=== PATIENT | male | born 1940 | race Hispanic/Latino ===

== ENCOUNTER → 2017-12-23 | Outpatient (CLI) | payer OTHER | END | disposition home or self-care (01) | LOC: RAH 12:41 | PROVIDERS: ATTEND Family Medicine | DX: Z13.6 Encounter for screening for cardiovascular disorders (principal) | CPT/HCPCS: 75571 ==

== ENCOUNTER → 2018-01-16 | Outpatient (CLI) | payer MEDICARE ==
[~2018-01-16] MED LIST: REGADENOSON 0.4 MG/5 ML PF SYG IVP ONE; REGADENOSON 0.4 MG/5 ML PF SYG IVP SCH
== END | disposition home or self-care (01) ==
LOC: SHCH 09:49
PROVIDERS: ATTEND Internal Medicine Cardiovascular Disease
DX: I25.10 Atherosclerotic heart disease of native coronary artery without angina pectoris (principal); I10 Essential (primary) hypertension; R93.1 Abnormal findings on diagnostic imaging of heart and coronary circulation
CPT/HCPCS: 78452; 93017; 96374; A9505; J2785

== ENCOUNTER 2020-04-14 15:50 | Inpatient (IN) | payer MEDICARE ==
[~2020-04-14] VITALS: Ht 167.6 cm; Wt 74.7 kg
[2020-04-14] MEDS ORDERED: ONDANSETRON 4MG INJ ONE (16:08)
[2020-04-14] MEDS ORDERED: 0.9%NACL 1000ML 1,000 ML IV ONE ×2 (16:10→16:53)
[2020-04-14 16:26] LABS: BASOPHILS % (AUTO) 0.3 % (0.0-5.0); HEMATOCRIT 31.7 % (42-54); LYMPHOCYTES % (AUTO) 3.1 % (21.0-51.0); MEAN CORPUSCULAR HEMOGLOBIN 30.7 pg (27.0-33.0); MEAN CORPUSCULAR HGB CONC 32.5 g/dL (32.0-36.0); MEAN CORPUSCULAR VOLUME 94.6 fL (79-99); MONOCYTES % (AUTO) 5.6 % (3.0-13.0); NEUTROPHILS % (AUTO) 85.7 % (40.0-77.0); PLATELET COUNT (AUTO) 80 K/uL (130-400); RED BLOOD CELL COUNT(AUTO) 3.35 MIL/uL (4.50-6.20); RED CELL DISTRIBUTION WIDTH 14.5 % (11.0-15.5); WHITE BLOOD COUNT (AUTO) 20.1 K/uL (4.8-10.8)
[2020-04-14 16:48] LABS: INR 1.15 (0.85-1.15); PROTHROMBIN TIME 12.4 SEC (9.6-11.6)
[2020-04-14 16:49] LABS: PARTIAL THROMBOPLASTIN TIME 29.6 SEC (26.3-35.5)
[2020-04-14 16:51] LABS: CREATININE 5.2 mg/dL (0.5-1.5); POTASSIUM 4.7 mmol/L (3.5-5.1)
[2020-04-14 16:52] LABS: B-TYPE NATRIURETIC PEPTIDE 759 pg/mL (0-100)
[2020-04-14] MEDS ORDERED: ZOSYN 3.375GM+NS 50ML 50 ML IV ONE (16:53)
[2020-04-14 17:14] LABS: ALBUMIN 3.4 g/dL (3.5-5.0); BILIRUBIN,TOTAL 0.6 mg/dL (0.2-1.0); TOTAL PROTEIN, SERUM 7.3 g/dL (6.0-8.3)
[2020-04-14] MEDS ORDERED: NOREPINEPHRIN 4MG/NS 250ML 250 ML IV ONE ×2 (17:43→23:03)
[2020-04-14] MEDS ORDERED: HEPARIN 25,000 UNITS/250ML D5W 250 ML IV SCH (20:00)
[2020-04-14] MEDS ORDERED: RENAL DOSE IV SCH (20:00)
[2020-04-14] MEDS ORDERED: VANCOMYCIN PROTOCOL PER PHARMACY IV SCH (20:00)
[2020-04-14] MEDS: ASPIRIN 325MG EC TAB PO SCH (20:00)
[2020-04-14] MEDS: ZOSYN 3.375GM+NS 50ML 50 ML IV SCH (20:00)
[2020-04-14] MEDS ORDERED: VANCOMYCIN 1G/250ML KIT 250 ML IV SCH (20:00)
[2020-04-14] MEDS ORDERED: NITROGLYCERIN 0.4 MG SL TAB SL PRN (20:15)
[2020-04-14] MEDS ORDERED: DIPHENHYDRAMINE HCL 25 MG CAPSULE PO PRN (20:15)
[2020-04-14] MEDS ORDERED: LACTULOSE 20 GM/30 ML UDCUP PO PRN (20:15)
[2020-04-14] MEDS ORDERED: GUAIFENESIN-DM 200/20 MG 10 ML PO PRN (20:15)
[2020-04-14] MEDS ORDERED: MAG/ALUM/SIMETH 30 ML UDCUP PO PRN (20:15)
[2020-04-14] MEDS ORDERED: DiphenhydrAMINE HCL 50 MG/ML VIAL IV PRN (20:15)
[2020-04-14] MEDS ORDERED: ACETAMINOPHEN 325 MG TAB PO PRN (20:15)
[2020-04-14] MEDS ORDERED: HEPARIN 5,000 UNIT VIAL ONE ×2 (20:41→20:54)
[2020-04-14] MEDS ORDERED: ASPIRIN 325 MG TABLET ONE (20:41)
[2020-04-14] MEDS ORDERED: FAMOTIDINE 20MG VIAL IV ONE (20:42)
[2020-04-14] MEDS ORDERED: HEPARIN 25,000 UNITS/250ML D5W 250 ML IV ONE (20:42)
[2020-04-14] MEDS ORDERED: VANCOMYCIN 1G/250ML KIT 250 ML IV ONE (20:42)
[2020-04-14 20:48] LABS: CREATININE 5.1 mg/dL (0.5-1.5); POTASSIUM 5.2 mmol/L (3.5-5.1)
[2020-04-14 21:11] LABS: ALBUMIN 3.1 g/dL (3.5-5.0); BILIRUBIN,TOTAL 0.6 mg/dL (0.2-1.0); TOTAL PROTEIN, SERUM 6.6 g/dL (6.0-8.3)
[2020-04-15 02:37] LABS: APPEARANCE,URINE CLOUDY (CLEAR); BILIRUBIN,URINE Negative (NEGATIVE); COLOR,URINE Dark Yellow (YELLOW); GLUCOSE, URINE (UA) TRACE mg/dL (NEGATIVE); KETONES,URINE Trace mg/dL (NEGATIVE); LEUKOCYTE ESTERASE ,URINE Small (NEGATIVE); NITRATE,URINE Negative (NEGATIVE); OCCULT BLOOD,URINE Moderate (NEGATIVE); PROTEIN,URINE 300 mg/dL (NEGATIVE)
[2020-04-15 02:46] LABS: AMORPHOUS SEDIMENT,UR Few /LPF (None Seen); BACTERIA,URINE Many /HPF (None Seen); FINE GRANULAR CASTS,URINE 0-2 /LPF (None Seen)
[2020-04-15 03:33] LABS: BASOPHILS % (AUTO) 0.2 % (0.0-5.0); EOSINOPHILS % (AUTO) 0.1 % (0.0-8.0); HEMATOCRIT 28.9 % (42-54); LYMPHOCYTES % (AUTO) 3.4 % (21.0-51.0); MEAN CORPUSCULAR HEMOGLOBIN 30.3 pg (27.0-33.0); MEAN CORPUSCULAR HGB CONC 32.5 g/dL (32.0-36.0); MEAN CORPUSCULAR VOLUME 93.2 fL (79-99); MONOCYTES % (AUTO) 6.6 % (3.0-13.0); NEUTROPHILS % (AUTO) 85.5 % (40.0-77.0); PLATELET COUNT (AUTO) 82 K/uL (130-400); RED CELL DISTRIBUTION WIDTH 14.4 % (11.0-15.5); WHITE BLOOD COUNT (AUTO) 18.3 K/uL (4.8-10.8)
[2020-04-15 03:45] LABS: INR 1.1 (0.85-1.15); PROTHROMBIN TIME 11.9 SEC (9.6-11.6)
[2020-04-15 03:47] LABS: PARTIAL THROMBOPLASTIN TIME 30.3 SEC (26.3-35.5)
[2020-04-15 03:53] LABS: CREATININE 5.3 mg/dL (0.5-1.5); POTASSIUM 5.2 mmol/L (3.5-5.1)
[2020-04-15 04:16] LABS: ALBUMIN 2.9 g/dL (3.5-5.0); BILIRUBIN,TOTAL 0.5 mg/dL (0.2-1.0); TOTAL PROTEIN, SERUM 6.2 g/dL (6.0-8.3)
[2020-04-15] MEDS ORDERED: NOREPINEPHRIN 4MG/NS 250ML 250 ML IV ONE ×3 (05:31→20:17)
[2020-04-15] MEDS ORDERED: ZOSYN 3.375GM+NS 50ML 50 ML IV ONE ×2 (05:34→21:07)
[2020-04-15] MEDS: ZOSYN 3.375GM+NS 50ML 50 ML IV SCH ×2 (08:00→20:00)
[2020-04-15] MEDS ORDERED: FAMOTIDINE 20MG VIAL IV ONE (08:01)
[2020-04-15] MEDS ORDERED: ASPIRIN 325MG EC TAB PO ONE (08:01)
[2020-04-15] MEDS: FAMOTIDINE 20MG VIAL IV SCH (09:00)
[2020-04-15 10:00] LABS: INR 1.06 (0.85-1.15); PROTHROMBIN TIME 11.5 SEC (9.6-11.6)
[2020-04-15 10:01] LABS: PARTIAL THROMBOPLASTIN TIME 28.4 SEC (26.3-35.5)
[2020-04-15] MEDS ORDERED: LACTATED RINGERS 1000ML 1,000 ML IV SCH (13:30)
[2020-04-15] MEDS: LINEZOLID 600 MG/ISO-OSM 300 ML IV SCH (13:30)
[2020-04-15] MEDS: MIDODRINE HCL 5 MG TABLET PO SCH ×2 (20:15→21:00)
[2020-04-15 21:23] LABS: HEMATOCRIT 32.9 % (42-54); MEAN CORPUSCULAR HEMOGLOBIN 30.3 pg (27.0-33.0); MEAN CORPUSCULAR HGB CONC 31.6 g/dL (32.0-36.0); MEAN CORPUSCULAR VOLUME 95.9 fL (79-99); RED BLOOD CELL COUNT(AUTO) 3.43 MIL/uL (4.50-6.20); RED CELL DISTRIBUTION WIDTH 14.3 % (11.0-15.5); WHITE BLOOD COUNT (AUTO) 19.4 K/uL (4.8-10.8)
[2020-04-15] MEDS ORDERED: MIDODRINE HCL 5 MG TABLET ONE (21:42)
[2020-04-15 21:54] LABS: BILIRUBIN,TOTAL 0.5 mg/dL (0.2-1.0); CREATININE 6.3 mg/dL (0.5-1.5); POTASSIUM 5.3 mmol/L (3.5-5.1); TOTAL PROTEIN, SERUM 6.6 g/dL (6.0-8.3)
[2020-04-16] VITALS (17 sets, daily range): BP systolic 100–134; BP diastolic 50–87
[2020-04-16] MEDS: INSULIN HUMULIN R 100 UNIT/ML 3ML IV SCH (01:15)
[2020-04-16] MEDS: DEXTROSE 50%-WATER 25 GM/50 ML VIAL IV SCH (01:15)
[2020-04-16] MEDS ORDERED: SODIUM BICARB 50MEQ 50ML VIAL IV ONE (01:15)
[2020-04-16] MEDS: CACL 1GM SYG IVP SCH (01:15)
[2020-04-16] MEDS: FUROSEMIDE 40MG VIAL IV SCH (01:15)
[2020-04-16] MEDS: KAYEXALATE 15GM/60ML PO SCH (01:15)
[2020-04-16] MEDS ORDERED: NOREPINEPHRIN 4MG/NS 250ML 250 ML IV ONE ×2 (02:49→15:10)
[2020-04-16 04:35] LABS: BASOPHILS % (AUTO) 0.3 % (0.0-5.0); EOSINOPHILS % (AUTO) 0.1 % (0.0-8.0); HEMATOCRIT 31.8 % (42-54); MEAN CORPUSCULAR HEMOGLOBIN 30.9 pg (27.0-33.0); MEAN CORPUSCULAR HGB CONC 32.1 g/dL (32.0-36.0); MEAN CORPUSCULAR VOLUME 96.4 fL (79-99); NEUTROPHILS % (AUTO) 88.8 % (40.0-77.0); PLATELET COUNT (AUTO) 93 K/uL (130-400); RED CELL DISTRIBUTION WIDTH 14.3 % (11.0-15.5)
[2020-04-16 04:47] LABS: ALBUMIN 2.8 g/dL (3.5-5.0); BILIRUBIN,TOTAL 0.5 mg/dL (0.2-1.0); CREATININE 6.4 mg/dL (0.5-1.5); POTASSIUM 5.3 mmol/L (3.5-5.1); TOTAL PROTEIN, SERUM 6.2 g/dL (6.0-8.3)
[2020-04-16] MEDS: ZOSYN 3.375GM+NS 50ML 50 ML IV SCH ×2 (08:00→20:03)
[2020-04-16] MEDS ORDERED: ASPIRIN 325 MG TABLET ONE (08:25)
[2020-04-16] MEDS ORDERED: FAMOTIDINE 20MG VIAL IV ONE (08:26)
[2020-04-16] MEDS ORDERED: MIDODRINE HCL 5 MG TABLET ONE (08:26)
[2020-04-16] MEDS: MIDODRINE HCL 5 MG TABLET PO SCH ×3 (09:00→20:03)
[2020-04-16] MEDS: FAMOTIDINE 20MG VIAL IV SCH (09:00)
[2020-04-16] MEDS ORDERED: ZOSYN 3.375GM+NS 50ML 50 ML IV ONE (09:00)
[2020-04-16] MEDS: ASPIRIN 325MG EC TAB PO SCH (09:00)
[2020-04-16] MEDS ORDERED: NOREPINEPHRINE BITARTRATE 1 MG/1 ML ML IV ONE (09:52)
[2020-04-16] MEDS ORDERED: 0.9% NACL 250ML 250 ML IV ONE (09:52)
[2020-04-16] MEDS: LINEZOLID 600 MG/ISO-OSM 300 ML IV SCH ×2 (11:30→12:57)
[2020-04-16] MEDS ORDERED: METF-444 PO (13:18)
[2020-04-16] MEDS ORDERED: ASPI-1005 PO (13:19)
[2020-04-16] MEDS ORDERED: LISI20TA24 PO (13:19)
[2020-04-16] MEDS ORDERED: ATOR40TA69 PO (13:19)
[2020-04-16] MEDS ORDERED: CA C1TAB74 PO (13:19)
[2020-04-16] MEDS ORDERED: HYDR12.54 PO (13:19)
[2020-04-16] MEDS ORDERED: FOLI0.8T22 PO (13:19)
[2020-04-16] MEDS ORDERED: GABA300S PO (13:19)
[2020-04-16] MEDS ORDERED: MECO10005 PO (13:19)
[2020-04-16 14:25] LABS: ABG BASE EXCESS -14.9 mmol/L (-2.0-3.0); ABG HCO3 10.3 mmol/L (21.0-28.0); ABG OXYGEN SATURATION 96.4 % (95.0-99.0); ABG PCO2 24 mmHg (35-48)
[2020-04-16] MEDS ORDERED: PHARMACY COMMUNICATION MISC STA (14:48)
[2020-04-16] MEDS: [UNRECOGNIZED DRUG - OTHER] IV SCH ×2 (15:36→21:58)
[2020-04-16] MEDS: SODIUM BICARB IV SCH ×2 (15:36→21:58)
[2020-04-16] MEDS: NOREPINEPHRIN 4MG/NS 250ML 250 ML IV SCH (20:06)
[2020-04-17] VITALS (28 sets, daily range): BP systolic 79–139; BP diastolic 37–71
[2020-04-17] MEDS: NOREPINEPHRIN 4MG/NS 250ML 250 ML IV SCH ×4 (00:44→22:12)
[2020-04-17] MEDS: DEXTROSE 50%-WATER 25 GM/50 ML VIAL IV SCH ×2 (01:04→20:01)
[2020-04-17] MEDS: INSULIN HUMULIN R 100 UNIT/ML 3ML IV SCH ×2 (01:05→20:02)
[2020-04-17] MEDS: CACL 1GM SYG IVP SCH ×2 (01:05→20:02)
[2020-04-17] MEDS: FUROSEMIDE 40MG VIAL IV SCH ×2 (01:05→20:02)
[2020-04-17] MEDS: KAYEXALATE 15GM/60ML PO SCH ×2 (01:05→20:02)
[2020-04-17] MEDS: LINEZOLID 600 MG/ISO-OSM 300 ML IV SCH ×2 (01:07→13:30)
[2020-04-17] MEDS: SODIUM BICARB IV SCH ×3 (04:13→20:01)
[2020-04-17] MEDS: [UNRECOGNIZED DRUG - OTHER] IV SCH ×3 (04:13→20:01)
[2020-04-17 04:54] LABS: BASOPHILS % (AUTO) 0.3 % (0.0-5.0); EOSINOPHILS % (AUTO) 1.1 % (0.0-8.0); HEMATOCRIT 30.1 % (42-54); LYMPHOCYTES % (AUTO) 4.8 % (21.0-51.0); MEAN CORPUSCULAR HEMOGLOBIN 30.1 pg (27.0-33.0); MEAN CORPUSCULAR HGB CONC 32.6 g/dL (32.0-36.0); MEAN CORPUSCULAR VOLUME 92.3 fL (79-99); MONOCYTES % (AUTO) 6.7 % (3.0-13.0); NEUTROPHILS % (AUTO) 85.9 % (40.0-77.0); PLATELET COUNT (AUTO) 88 K/uL (130-400); RED BLOOD CELL COUNT(AUTO) 3.26 MIL/uL (4.50-6.20); RED CELL DISTRIBUTION WIDTH 14.3 % (11.0-15.5); WHITE BLOOD COUNT (AUTO) 14.7 K/uL (4.8-10.8)
[2020-04-17 05:21] LABS: ALBUMIN 2.4 g/dL (3.5-5.0); BILIRUBIN,TOTAL 0.5 mg/dL (0.2-1.0); CREATININE 6.4 mg/dL (0.5-1.5); MAGNESIUM 1.7 mg/dL (1.80-2.40); PHOSPHORUS 4.7 mg/dL (2.5-4.9); POTASSIUM 3.9 mmol/L (3.5-5.1); TOTAL PROTEIN, SERUM 5.8 g/dL (6.0-8.3)
[2020-04-17] MEDS: MIDODRINE HCL 5 MG TABLET PO SCH ×3 (09:00→20:23)
[2020-04-17] MEDS: ASPIRIN 325MG EC TAB PO SCH (09:00)
[2020-04-17] MEDS: FAMOTIDINE 20MG VIAL IV SCH (09:00)
[2020-04-17] MEDS: ZOSYN 3.375GM+NS 50ML 50 ML IV SCH ×2 (09:43→20:01)
[2020-04-17] MEDS ORDERED: LIDOCAINE HCL 1% MDV 50ML VIAL ONE (10:17)
[2020-04-17] MEDS ORDERED: IODIXANOL 320 MG/ML 100 ML VIAL ONE (10:21)
[2020-04-17] MEDS: ACETAMINOPHEN 325 MG TAB PO PRN ×2 (13:29→15:16)
[2020-04-17] MEDS ORDERED: PHARMACY COMMUNICATION MISC SCH (20:00)
[2020-04-17] MEDS: HEPARIN 5,000 UNIT VIAL SQ SCH (20:01)
[2020-04-18] VITALS (26 sets, daily range): BP systolic 86–147; BP diastolic 44–100
[2020-04-18] MEDS: HEPARIN 5,000 UNIT VIAL SQ SCH (04:41)
[2020-04-18] MEDS: SODIUM BICARB IV SCH (04:42)
[2020-04-18] MEDS: [UNRECOGNIZED DRUG - OTHER] IV SCH (04:42)
[2020-04-18 05:50] LABS: BASOPHILS % (AUTO) 0.3 % (0.0-5.0); HEMATOCRIT 27.6 % (42-54); MEAN CORPUSCULAR HEMOGLOBIN 30.2 pg (27.0-33.0); MEAN CORPUSCULAR HGB CONC 32.2 g/dL (32.0-36.0); MEAN CORPUSCULAR VOLUME 93.6 fL (79-99); MONOCYTES % (AUTO) 7.5 % (3.0-13.0); NEUTROPHILS % (AUTO) 85.1 % (40.0-77.0); PLATELET COUNT (AUTO) 56 K/uL (130-400); RED BLOOD CELL COUNT(AUTO) 2.95 MIL/uL (4.50-6.20); RED CELL DISTRIBUTION WIDTH 14.6 % (11.0-15.5); WHITE BLOOD COUNT (AUTO) 11.2 K/uL (4.8-10.8)
[2020-04-18 05:57] LABS: ALBUMIN 2.2 g/dL (3.5-5.0); BILIRUBIN,TOTAL 0.5 mg/dL (0.2-1.0); CREATININE 5.5 mg/dL (0.5-1.5); POTASSIUM 3.9 mmol/L (3.5-5.1); TOTAL PROTEIN, SERUM 5.4 g/dL (6.0-8.3)
[2020-04-18] MEDS ORDERED: SODIUM BICARBONATE 650 MG TAB PO SCH (09:00)
[2020-04-18] MEDS: MIDODRINE HCL 5 MG TABLET PO SCH ×3 (09:27→22:28)
[2020-04-18] MEDS: DEXTROSE 5%-WATER 1,000 ML IV SCH (09:27)
[2020-04-18] MEDS: CEFTRIAXONE 1G VIAL IVP SCH (09:27)
[2020-04-18] MEDS: SODIUM BICARBONATE 650 MG TAB PO SCH (09:27)
[2020-04-18] MEDS: PANTOPRAZOLE 40 MG TAB DR PO SCH (09:27)
[2020-04-18 21:14] LABS: ABG BASE EXCESS 2.6 mmol/L (-2.0-3.0); ABG HCO3 26.4 mmol/L (21.0-28.0); ABG OXYGEN SATURATION 94.9 % (95.0-99.0); ABG PCO2 37 mmHg (35-48)
[2020-04-19] VITALS (20 sets, daily range): BP systolic 102–126; BP diastolic 44–83
[2020-04-19] MEDS: DEXTROSE 5%-WATER 1,000 ML IV SCH (02:24)
[2020-04-19 03:51] LABS: BASOPHILS % (AUTO) 0.3 % (0.0-5.0); EOSINOPHILS % (AUTO) 2.6 % (0.0-8.0); HEMATOCRIT 25.4 % (42-54); LYMPHOCYTES % (AUTO) 7.2 % (21.0-51.0); MEAN CORPUSCULAR HGB CONC 32.7 g/dL (32.0-36.0); MEAN CORPUSCULAR VOLUME 91.7 fL (79-99); MONOCYTES % (AUTO) 9.7 % (3.0-13.0); NEUTROPHILS % (AUTO) 79.1 % (40.0-77.0); PLATELET COUNT (AUTO) 63 K/uL (130-400); RED BLOOD CELL COUNT(AUTO) 2.77 MIL/uL (4.50-6.20); RED CELL DISTRIBUTION WIDTH 14.4 % (11.0-15.5); WHITE BLOOD COUNT (AUTO) 7.9 K/uL (4.8-10.8)
[2020-04-19 04:09] LABS: CREATININE 4.8 mg/dL (0.5-1.5); MAGNESIUM 1.6 mg/dL (1.80-2.40); POTASSIUM 3.1 mmol/L (3.5-5.1)
[2020-04-19] MEDS: ONDANSETRON 4MG INJ IV PRN ×2 (05:07→13:44)
[2020-04-19] MEDS: PANTOPRAZOLE 40 MG TAB DR PO SCH (08:54)
[2020-04-19] MEDS: SODIUM BICARBONATE 650 MG TAB PO SCH (08:54)
[2020-04-19] MEDS: CEFTRIAXONE 1G VIAL IVP SCH (08:54)
[2020-04-19] MEDS: MIDODRINE HCL 5 MG TABLET PO SCH ×3 (08:54→21:53)
[2020-04-19] MEDS: MAGNESIUM CHLORIDE 70 MG TABLET.SA PO SCH (21:00)
[2020-04-20 03:49] VITALS: BP 122/53
[2020-04-20 07:07] LABS: BASOPHILS % (AUTO) 0.4 % (0.0-5.0); EOSINOPHILS % (AUTO) 4.1 % (0.0-8.0); HEMATOCRIT 25.6 % (42-54); MEAN CORPUSCULAR HEMOGLOBIN 30.8 pg (27.0-33.0); MEAN CORPUSCULAR HGB CONC 33.2 g/dL (32.0-36.0); MEAN CORPUSCULAR VOLUME 92.8 fL (79-99); MONOCYTES % (AUTO) 7.2 % (3.0-13.0); NEUTROPHILS % (AUTO) 80.5 % (40.0-77.0); PLATELET COUNT (AUTO) 73 K/uL (130-400); RED BLOOD CELL COUNT(AUTO) 2.76 MIL/uL (4.50-6.20); WHITE BLOOD COUNT (AUTO) 7.6 K/uL (4.8-10.8)
[2020-04-20 07:27] LABS: ALBUMIN 2.1 g/dL (3.5-5.0); BILIRUBIN,TOTAL 0.3 mg/dL (0.2-1.0); CREATININE 3.9 mg/dL (0.5-1.5); TOTAL PROTEIN, SERUM 5.5 g/dL (6.0-8.3)
[2020-04-20 07:29] LABS: POTASSIUM 2.8 mmol/L (3.5-5.1)
[2020-04-20 07:32] VITALS: BP 115/53
[2020-04-20] MEDS ORDERED: KCL 20 MEQ ERTAB PO SCH ×2 (08:00→11:14)
[2020-04-20] MEDS ORDERED: KCL 20 MEQ ERTAB PO ONE ×2 (08:02→10:41)
[2020-04-20] MEDS: CEFTRIAXONE 1G VIAL IVP SCH (08:08)
[2020-04-20] MEDS: MIDODRINE HCL 5 MG TABLET PO SCH (08:08)
[2020-04-20] MEDS: PANTOPRAZOLE 40 MG TAB DR PO SCH (08:08)
[2020-04-20] MEDS: MAGNESIUM CHLORIDE 70 MG TABLET.SA PO SCH ×2 (10:41→21:09)
[2020-04-20] MEDS: SODIUM BICARBONATE 650 MG TAB PO SCH (10:41)
[2020-04-20 10:49] VITALS: BP 106/51
[2020-04-20 16:15] VITALS: BP 128/67
[2020-04-20 18:34] LABS: % IRON SATURATION 14.9 % (30-44)
[2020-04-20] MEDS: LACTATED RINGERS 1000ML 1,000 ML IV SCH (18:37)
[2020-04-20 20:00] VITALS: BP 135/58
[2020-04-20] MEDS ORDERED: MIDODRINE HCL 5 MG TABLET PO SCH (21:00)
[2020-04-21] VITALS (7 sets, daily range): BP systolic 114–135; BP diastolic 54–73
[2020-04-21 05:32] LABS: CREATININE 3.2 mg/dL (0.5-1.5); MAGNESIUM 1.6 mg/dL (1.80-2.40); POTASSIUM 3.5 mmol/L (3.5-5.1)
[2020-04-21] MEDS: LACTATED RINGERS 1000ML 1,000 ML IV SCH (06:01)
[2020-04-21] MEDS: MAGNESIUM CHLORIDE 70 MG TABLET.SA PO SCH ×2 (08:45→21:35)
[2020-04-21] MEDS: SODIUM BICARBONATE 650 MG TAB PO SCH (08:45)
[2020-04-21] MEDS: CEFTRIAXONE 1G VIAL IVP SCH (08:45)
[2020-04-21] MEDS: PANTOPRAZOLE 40 MG TAB DR PO SCH (08:45)
[2020-04-21] MEDS: FONDAPARINUX SODIUM 2.5 MG/0.5 ML SQ SCH (08:45)
[2020-04-21] MEDS ORDERED: KCL 20 MEQ ERTAB PO SCH (09:14)
[2020-04-22 04:00] VITALS: BP 109/57
[2020-04-22 05:26] LABS: BASOPHILS % (AUTO) 0.4 % (0.0-5.0); EOSINOPHILS % (AUTO) 2.5 % (0.0-8.0); HEMATOCRIT 25.7 % (42-54); MEAN CORPUSCULAR HEMOGLOBIN 30.5 pg (27.0-33.0); MEAN CORPUSCULAR HGB CONC 32.3 g/dL (32.0-36.0); MEAN CORPUSCULAR VOLUME 94.5 fL (79-99); MONOCYTES % (AUTO) 10.5 % (3.0-13.0); NEUTROPHILS % (AUTO) 76.8 % (40.0-77.0); PLATELET COUNT (AUTO) 95 K/uL (130-400); RED BLOOD CELL COUNT(AUTO) 2.72 MIL/uL (4.50-6.20); RED CELL DISTRIBUTION WIDTH 13.8 % (11.0-15.5); WHITE BLOOD COUNT (AUTO) 4.9 K/uL (4.8-10.8)
[2020-04-22 05:35] LABS: CREATININE 2.7 mg/dL (0.5-1.5); POTASSIUM 3.9 mmol/L (3.5-5.1)
[2020-04-22 08:00] VITALS: BP 134/59
[2020-04-22] MEDS: SODIUM BICARBONATE 650 MG TAB PO SCH (08:40)
[2020-04-22] MEDS: PANTOPRAZOLE 40 MG TAB DR PO SCH (08:40)
[2020-04-22] MEDS: MAGNESIUM CHLORIDE 70 MG TABLET.SA PO SCH (08:40)
[2020-04-22] MEDS: CEFTRIAXONE 1G VIAL IVP SCH (08:41)
[2020-04-22] MEDS: FONDAPARINUX SODIUM 2.5 MG/0.5 ML SQ SCH (08:41)
[2020-04-22] MEDS ORDERED: METOPROLOL SUCCINATE 50 MG TAB.SR.24H PO SCH (10:15)
[2020-04-22] MEDS ORDERED: IRON SUCROSE COMPLEX 100 MG in 0.9%NACL 50ML 50 ML IV SCH (10:30)
[2020-04-22] MEDS ORDERED: COMPOUND IV MISC 1 EACH IVSOLN MISC PRN (11:45)
[2020-04-22 12:07] VITALS: BP 140/64
[2020-04-22] MEDS ORDERED: ASPIRIN 81MG CHEW TAB PO SCH (15:00)
[2020-04-22 16:00] VITALS: BP 133/41
[2020-04-22] MEDS ORDERED: ATORVASTATIN 40 MG TABLET PO SCH (21:00)
[2020-07-06] MEDS ORDERED: FERR325T22 PO (09:50)
[2020-07-06] MEDS ORDERED: FOLI0.8T3 PO (09:50)
== END 2020-04-22 19:25 | disposition home or self-care (01) | DRG 871 ==
LOC: EDH 15:50 → EDHIP 20:10 → 2CH 04-16 11:20 → 3DH 04-19 17:12
PROVIDERS: ADMIT Family Medicine; ATTEND Family Medicine
PROC: 0F9430Z Drainage of Gallbladder with Drainage Device, Percutaneous Approach (ICD-10-PCS; principal; 2020-04-17)
DX: A41.51 Sepsis due to Escherichia coli [E. coli] (principal); R65.21 Severe sepsis with septic shock; R57.0 Cardiogenic shock; I21.A1 Myocardial infarction type 2; K80.62 Calculus of gallbladder and bile duct with acute cholecystitis without obstruction; M62.82 Rhabdomyolysis; K82.1 Hydrops of gallbladder; N18.5 Chronic kidney disease, stage 5; I12.0 Hypertensive chronic kidney disease with stage 5 chronic kidney disease or end stage renal disease; E87.2 Acidosis; N17.9 Acute kidney failure, unspecified; E87.1 Hypo-osmolality and hyponatremia; E87.0 Hyperosmolality and hypernatremia; E11.22 Type 2 diabetes mellitus with diabetic chronic kidney disease; B96.89 Other specified bacterial agents as the cause of diseases classified elsewhere; D50.9 Iron deficiency anemia, unspecified; D69.6 Thrombocytopenia, unspecified; E11.42 Type 2 diabetes mellitus with diabetic polyneuropathy; E78.5 Hyperlipidemia, unspecified; E86.1 Hypovolemia; E87.5 Hyperkalemia; E87.6 Hypokalemia; G47.33 Obstructive sleep apnea (adult) (pediatric); E11.21 Type 2 diabetes mellitus with diabetic nephropathy; E87.8 Other disorders of electrolyte and fluid balance, not elsewhere classified; D63.8 Anemia in other chronic diseases classified elsewhere; I25.10 Atherosclerotic heart disease of native coronary artery without angina pectoris; Z74.01 Bed confinement status; Z82.49 Family history of ischemic heart disease and other diseases of the circulatory system; Z83.3 Family history of diabetes mellitus; Z90.49 Acquired absence of other specified parts of digestive tract; Z91.15 Patient's noncompliance with renal dialysis; Z20.822 Contact with and (suspected) exposure to COVID-19
CPT/HCPCS: 36415; 36600; 47490; 70450; 71045; 74176; 76700; 76942; 80048; 80053; 80061; 81001; 82270; 82435; 82550; 82803; 82947; 82948; 82977; 83540; 83550; 83605; 83690; 83735; 83880; 84100; 84132; 84145; 84295; 84484; 85018; 85025; 85027; 85610; 85730; 86022; 86900; 86901; 87040; 87070; 87076; 87077; 87088; 87186; 87426; 87804; 93005; 93306; 93356; 93970; 97039; 99291; C1769; G0378; J0696; J1644; J1652; J1756; J2020; J2405; J2543; J3370; J3490; J7030; J7050; J7070; J7120; Q9967; U0003

== ENCOUNTER → 2020-06-19 | Outpatient (CLI) | payer MEDICARE ==
[~2020-06-19] VITALS: Ht 167.6 cm; Wt 65.3 kg
[~2020-06-19] MED LIST changes: +ASPI-1005 PO; +ATOR40TA69 PO; +CA C1TAB74 PO; +FERR325T22 PO; +FOLI0.8T22 PO; +FOLI0.8T3 PO; +GABA300S PO; +HYDR12.54 PO; +LISI20TA24 PO; +MECO10005 PO; +METF-444 PO; -REGADENOSON 0.4 MG/5 ML PF SYG IVP ONE; -REGADENOSON 0.4 MG/5 ML PF SYG IVP SCH
[2020-06-19 09:29] VITALS: BP 155/60
[2020-06-19 11:41] LABS: BASOPHILS % (AUTO) 0.3 % (0.0-5.0); HEMATOCRIT 31.6 % (42-54); LYMPHOCYTES % (AUTO) 14.3 % (21.0-51.0); MEAN CORPUSCULAR HEMOGLOBIN 28.9 pg (27.0-33.0); MEAN CORPUSCULAR HGB CONC 31.3 g/dL (32.0-36.0); MEAN CORPUSCULAR VOLUME 92.4 fL (79-99); MONOCYTES % (AUTO) 8.2 % (3.0-13.0); NEUTROPHILS % (AUTO) 73.9 % (40.0-77.0); PLATELET COUNT (AUTO) 149 K/uL (130-400); RED BLOOD CELL COUNT(AUTO) 3.42 MIL/uL (4.50-6.20); RED CELL DISTRIBUTION WIDTH 14.6 % (11.0-15.5); WHITE BLOOD COUNT (AUTO) 6.3 K/uL (4.8-10.8)
[2020-06-19 11:50] LABS: CREATININE 1.6 mg/dL (0.5-1.5); POTASSIUM 4.2 mmol/L (3.5-5.1)
[2020-06-19 12:22] LABS: APPEARANCE,URINE Clear (CLEAR); BILIRUBIN,URINE Negative (NEGATIVE); COLOR,URINE Yellow (YELLOW); GLUCOSE, URINE (UA) Negative (NEGATIVE); KETONES,URINE Negative (NEGATIVE); LEUKOCYTE ESTERASE ,URINE Negative (NEGATIVE); NITRATE,URINE Negative (NEGATIVE); OCCULT BLOOD,URINE Negative (NEGATIVE); PH,URINE 5.5 (5.0-8.0); PROTEIN,URINE POS 1+ mg/dL (NEGATIVE); UROBILINOGEN,URINE 0.2 mg/dL (0.2-1.0)
[2020-06-19 12:30] LABS: INR 1.04 (0.85-1.15); PROTHROMBIN TIME 10.8 SEC (9.6-11.6)
[2020-06-19 13:05] LABS: BACTERIA,URINE Rare /HPF (None Seen); RBC,URINE 0-1 /HPF (0-1); SQUAMOUS EPITHELIAL CELL,UR Rare /HPF (0-2); WBC,URINE 0-1 /HPF (0-1)
== END | disposition home or self-care (01) ==
LOC: EDSTATUS 10:00 → DAH 10:00
PROVIDERS: ATTEND Internal Medicine Cardiovascular Disease
DX: Z01.818 Encounter for other preprocedural examination (principal); I21.4 Non-ST elevation (NSTEMI) myocardial infarction; D64.9 Anemia, unspecified; I10 Essential (primary) hypertension; E78.2 Mixed hyperlipidemia; E11.9 Type 2 diabetes mellitus without complications; Z79.899 Other long term (current) drug therapy; Z79.01 Long term (current) use of anticoagulants; Z82.49 Family history of ischemic heart disease and other diseases of the circulatory system; Z53.8 Procedure and treatment not carried out for other reasons
CPT/HCPCS: 36415; 71045; 80048; 81001; 85025; 85610; 85730; 93005

== ENCOUNTER 2020-07-07 08:31 | Day surgery (SDC) | payer MEDICARE ==
[2020-07-05 10:46] LABS: BASOPHILS % (AUTO) 0.5 % (0.0-5.0); EOSINOPHILS % (AUTO) 5.8 % (0.0-8.0); HEMATOCRIT 31.4 % (42-54); LYMPHOCYTES % (AUTO) 19.3 % (21.0-51.0); MEAN CORPUSCULAR HEMOGLOBIN 29.2 pg (27.0-33.0); MEAN CORPUSCULAR HGB CONC 31.8 g/dL (32.0-36.0); MEAN CORPUSCULAR VOLUME 91.8 fL (79-99); MONOCYTES % (AUTO) 7.1 % (3.0-13.0); NEUTROPHILS % (AUTO) 66.8 % (40.0-77.0); PLATELET COUNT (AUTO) 152 K/uL (130-400); RED BLOOD CELL COUNT(AUTO) 3.42 MIL/uL (4.50-6.20); RED CELL DISTRIBUTION WIDTH 14.6 % (11.0-15.5); WHITE BLOOD COUNT (AUTO) 5.5 K/uL (4.8-10.8)
[2020-07-05 10:51] LABS: APPEARANCE,URINE Clear (CLEAR); BILIRUBIN,URINE Negative (NEGATIVE); COLOR,URINE Yellow (YELLOW); GLUCOSE, URINE (UA) Negative (NEGATIVE); KETONES,URINE Negative (NEGATIVE); LEUKOCYTE ESTERASE ,URINE Negative (NEGATIVE); NITRATE,URINE Negative (NEGATIVE); OCCULT BLOOD,URINE Negative (NEGATIVE); PROTEIN,URINE Trace mg/dL (NEGATIVE); UROBILINOGEN,URINE 0.2 mg/dL (0.2-1.0)
[2020-07-05 10:55] LABS: CREATININE 1.5 mg/dL (0.5-1.5); POTASSIUM 4.6 mmol/L (3.5-5.1)
[2020-07-05 10:58] LABS: BACTERIA,URINE Rare /HPF (None Seen); MUCUS,URINE Few LPF (None Seen); PROTHROMBIN TIME 10.9 SEC (9.6-11.6); RBC,URINE None Seen /HPF (0-1); SQUAMOUS EPITHELIAL CELL,UR None Seen /HPF (0-2); WBC,URINE 0-1 /HPF (0-1)
[2020-07-05 11:00] LABS: PARTIAL THROMBOPLASTIN TIME 27.2 SEC (26.3-35.5)
[2020-07-06 09:30] VITALS: BP 159/63
[~2020-07-07] VITALS: Ht 167.6 cm; Wt 65.0 kg
[2020-07-07] VITALS (8 sets, daily range): BP systolic 108–138; BP diastolic 54–65
[~2020-07-07 08:31] MED LIST changes: +SODIUM CHLORIDE 0.9% 1000ML 1,000 ML IV ONE
[2020-07-07] MEDS ORDERED: BIVALIRUDIN 250 MG/VIAL IV ONE (13:29)
[2020-07-07] MEDS ORDERED: SODIUM BICARB 50MEQ 50ML VIAL 50 ML ONE (13:29)
[2020-07-07] MEDS ORDERED: NICARDIPINE HCL 25 MG/10 ML ML IV ONE (13:30)
[2020-07-07] MEDS ORDERED: HEPARIN SODIUM 1000UNIT/ML 10ML VIAL ONE (13:30)
[2020-07-07] MEDS ORDERED: MIDAZOLAM HCL 1 MG/ML 2ML VIAL ONE (13:30)
[2020-07-07] MEDS ORDERED: FENTANYL CITRATE PF 50 MCG/1 ML 2ML VIAL ONE (13:30)
[2020-07-07] MEDS ORDERED: NITROGLYCERIN 2 MG/VIAL VIAL IV ONE (13:30)
[2020-07-07] MEDS ORDERED: LIDOCAINE HCL 2% 20ML ONE (13:30)
[2020-07-07] MEDS ORDERED: IOHEXOL 350 MG/ML 100ML INFUS..BTL IV ONE (13:31)
[2020-07-07] MEDS ORDERED: IOHEXOL-350 75 ML VIAL IV ONE (13:31)
[2020-07-07] MEDS ORDERED: GLUCAGON 1MG KIT 1 MG ML IM PRN (15:00)
[2020-07-07] MEDS ORDERED: SODIUM CHLORIDE 0.9% 1000ML 1,000 ML IV SCH (15:00)
[2020-07-07] MEDS ORDERED: DEXTROSE 50%-WATER 50 ML DISP.SYRIN IV PRN (15:00)
== END 2020-07-07 18:15 | disposition home or self-care (01) ==
LOC: DAH 08:31
PROVIDERS: ATTEND Internal Medicine Cardiovascular Disease
DX: I25.10 Atherosclerotic heart disease of native coronary artery without angina pectoris (principal); I25.2 Old myocardial infarction; I10 Essential (primary) hypertension; E11.9 Type 2 diabetes mellitus without complications; E78.2 Mixed hyperlipidemia; D64.9 Anemia, unspecified; Z90.49 Acquired absence of other specified parts of digestive tract; Z79.84 Long term (current) use of oral hypoglycemic drugs; Z79.82 Long term (current) use of aspirin; Z79.01 Long term (current) use of anticoagulants; Z79.899 Other long term (current) drug therapy; Z82.49 Family history of ischemic heart disease and other diseases of the circulatory system; Z98.49 Cataract extraction status, unspecified eye
CPT/HCPCS: 36415; 71045; 80048; 81001; 82948 ×2; 85025; 85610; 85730; 93005; 93458; A4215; A4216; A4221; A4222; A4223 ×3; A4565; A4606; A4663; C1769; C1887; C1894; J1644 ×2; J2250; J3010; J3490 ×4; J7030 ×2; Q9965; Q9967 ×2; 99156; 99157; J0583

== ENCOUNTER → 2021-04-16 | Outpatient (CLI) | payer MEDICARE ==
[~2021-04-16] MED LIST changes: -FOLI0.8T3 PO; -SODIUM CHLORIDE 0.9% 1000ML 1,000 ML IV ONE
== END | disposition home or self-care (01) ==
LOC: RAH 08:29
PROVIDERS: ATTEND Specialist
DX: K80.20 Calculus of gallbladder without cholecystitis without obstruction (principal)
CPT/HCPCS: 76700

== ENCOUNTER 2021-06-05 21:17 | Inpatient (IN) | payer MEDICARE ==
[~2021-06-05] VITALS: Ht 165.1 cm; Wt 69.1 kg
[2021-06-05 21:48] LABS: EOSINOPHILS % (AUTO) 0.4 % (0.0-8.0); LYMPHOCYTES % (AUTO) 3.9 % (21.0-51.0); MEAN CORPUSCULAR HEMOGLOBIN 31.7 pg (27.0-33.0); MEAN CORPUSCULAR HGB CONC 31.6 g/dL (32.0-36.0); MEAN CORPUSCULAR VOLUME 100.3 fL (79-99); MONOCYTES % (AUTO) 4.5 % (3.0-13.0); NEUTROPHILS % (AUTO) 90.4 % (40.0-77.0); PLATELET COUNT (AUTO) 88 K/uL (130-400); RED BLOOD CELL COUNT(AUTO) 3.19 MIL/uL (4.50-6.20); RED CELL DISTRIBUTION WIDTH 15.3 % (11.0-15.5); WHITE BLOOD COUNT (AUTO) 7.9 K/uL (4.8-10.8)
[2021-06-05] MEDS ORDERED: MORPHINE 2 MG SYG IVP ONE (22:00)
[2021-06-05] MEDS ORDERED: ONDANSETRON 4MG INJ IVP ONE (22:00)
[2021-06-05 22:01] LABS: CREATININE 2.1 mg/dL (0.5-1.5); POTASSIUM 4.3 mmol/L (3.5-5.1)
[2021-06-05] MEDS ORDERED: 0.9%NACL 1000ML 1,000 ML IV ONE ×2 (22:07→22:30)
[2021-06-05] MEDS ORDERED: HYDROCODONE/ACETAMINOPHEN 5/325 MG TAB ONE (22:08)
[2021-06-05 22:18] LABS: ALBUMIN 2.9 g/dL (3.5-5.0); BILIRUBIN,TOTAL 2.3 mg/dL (0.2-1.0)
[2021-06-05] MEDS ORDERED: HYDROCODONE/ACETAMINOPHEN 5/325 MG TAB PO ONE (22:30)
[2021-06-05] MEDS ORDERED: INSULIN HUMULIN R 100 UNIT/ML 3ML IV ONE (23:00)
[2021-06-05] MEDS ORDERED: INSULIN HUMULIN R 100 UNIT/ML 3ML ONE (23:14)
[2021-06-05 23:45] LABS: AMYLASE 110 U/L (25-115); LIPASE 624 U/L (114-286)
[2021-06-06] VITALS (39 sets, daily range): BP systolic 89–158; BP diastolic 39–83
[2021-06-06] MEDS ORDERED: ONDANSETRON 4MG INJ IV PRN
[2021-06-06] MEDS ORDERED: MAG/ALUM/SIMETH 30 ML UDCUP PO PRN
[2021-06-06] MEDS ORDERED: NITROGLYCERIN 0.4 MG SL TAB SL PRN
[2021-06-06] MEDS ORDERED: HYDROMORPHONE 0.5 MG SYG (0.5MG/0.5ML) IVP PRN
[2021-06-06] MEDS ORDERED: HYDRALAZINE HCL 10 MG TABLET PO PRN
[2021-06-06] MEDS ORDERED: ACETAMINOPHEN 325 MG TAB PO PRN ×2
[2021-06-06] MEDS ORDERED: GUAIFENESIN-DM 200/20 MG 10 ML PO PRN
[2021-06-06] MEDS ORDERED: GLUCAGON 1MG KIT 1 MG ML IM PRN
[2021-06-06] MEDS ORDERED: PROMETHAZINE HCL 25 MG/ML 1ML AMPULE IM PRN
[2021-06-06] MEDS ORDERED: DEXTROSE 50%-WATER 50 ML DISP.SYRIN IV PRN
[2021-06-06] MEDS ORDERED: ZOLPIDEM TARTRATE 5 MG TAB PO PRN
[2021-06-06] MEDS ORDERED: LACTULOSE 20 GM/30 ML UDCUP PO PRN
[2021-06-06] MEDS ORDERED: MIDODRINE HCL 5 MG TABLET ONE (01:25)
[2021-06-06] MEDS: 0.9%NACL 1000ML 1,000 ML IV SCH ×4 (01:39→19:25)
[2021-06-06] MEDS ORDERED: ALBUMIN (HUMAN) 25% 100 ML IV ONE ×2 (02:35→03:00)
[2021-06-06] MEDS ORDERED: 0.9%NACL 100ML 100 ML ONE (03:33)
[2021-06-06] MEDS: ZOSYN 3.375GM+NS 50ML 50 ML IV SCH ×2 (03:36→14:25)
[2021-06-06] MEDS: NOREPINEPHRIN 4MG/NS 250ML 250 ML IV SCH ×3 (06:10→19:25)
[2021-06-06 07:22] LABS: APPEARANCE,URINE CLEAR (CLEAR); BILIRUBIN,URINE NEGATIVE (NEGATIVE); COLOR,URINE YELLOW (YELLOW); GLUCOSE, URINE (UA) 500 mg/dL (NEGATIVE); KETONES,URINE NEGATIVE (NEGATIVE); LEUKOCYTE ESTERASE ,URINE NEGATIVE (NEGATIVE); NITRATE,URINE NEGATIVE (NEGATIVE); OCCULT BLOOD,URINE NEGATIVE (NEGATIVE); PH,URINE 5.5 (5.0-8.0); PROTEIN,URINE TRACE mg/dL (NEGATIVE)
[2021-06-06] MEDS: INSULIN HUMULIN R 100 UNIT/ML 3ML SQ SCH ×4 (07:30→20:02)
[2021-06-06 07:41] LABS: BACTERIA,URINE Rare /HPF (None Seen); RBC,URINE 0-1 /HPF (0-1); SQUAMOUS EPITHELIAL CELL,UR Rare /HPF (0-2); WBC,URINE 0-1 /HPF (0-1)
[2021-06-06 07:57] LABS: HEMATOCRIT 30.3 % (42-54); MEAN CORPUSCULAR HEMOGLOBIN 30.9 pg (27.0-33.0); MEAN CORPUSCULAR HGB CONC 30.7 g/dL (32.0-36.0); MEAN CORPUSCULAR VOLUME 100.7 fL (79-99); PLATELET COUNT (AUTO) 50 K/uL (130-400); RED BLOOD CELL COUNT(AUTO) 3.01 MIL/uL (4.50-6.20); RED CELL DISTRIBUTION WIDTH 15.6 % (11.0-15.5); WHITE BLOOD COUNT (AUTO) 4.7 K/uL (4.8-10.8)
[2021-06-06 08:36] LABS: ALBUMIN 2.7 g/dL (3.5-5.0); BILIRUBIN,TOTAL 3.6 mg/dL (0.2-1.0); CREATININE 1.9 mg/dL (0.5-1.5); TOTAL PROTEIN, SERUM 5.3 g/dL (6.0-8.3)
[2021-06-06] MEDS: MIDODRINE HCL 5 MG TABLET PO SCH ×3 (08:37→20:00)
[2021-06-06] MEDS: FAMOTIDINE 20MG VIAL IV SCH (08:37)
[2021-06-06 08:38] LABS: BAND NEUTROPHILS % (MANUAL) 15 % (0-2); LYMPHOCYTES % (MANUAL) 1 % (22-44); MONOCYTES % (MANUAL) 1 % (2-9); SEGMENTED NEUTROPHILS % 83 % (40-70)
[2021-06-06 08:39] LABS: MAN.DIFF COMMENT-IMPRESSION MANUAL DIFFERENTIAL; PLATELET MORPHOLOGY COMMENT ADEQUATE
[2021-06-06] MEDS ORDERED: ENOXAPARIN SODIUM 30 MG/0.3 ML SQ SCH (09:00)
[2021-06-06] MEDS ORDERED: 0.9% NACL 500ML IV.SOLN 500 ML IV SCH ×2 (14:30→16:00)
[2021-06-06] MEDS: Vitamin B Complex/Vit C/Folic Acid PO SCH (15:44)
[2021-06-06 16:56] LABS: CHLORIDE,URINE RANDOM 62 mmol/L (110-250); POTASSIUM,URINE RANDOM 41 mmol/L (25-125); SODIUM,URINE RANDOM 44 mmol/l (40-220)
[2021-06-06] MEDS: THIAMINE HCL 100 MG/ML 2ML VIAL IVP SCH (17:09)
[2021-06-06 17:10] LABS: INR 1.37 (0.85-1.15); PROTHROMBIN TIME 14.5 SEC (9.6-11.6)
[2021-06-06] MEDS ORDERED: FOLI0.8C PO (18:44)
[2021-06-06] MEDS ORDERED: BETA1TAB20 PO (18:44)
[2021-06-06] MEDS ORDERED: TAMS-1 PO (18:44)
[2021-06-06] MEDS ORDERED: DAPA5TAB PO (18:44)
[2021-06-06] MEDS ORDERED: LISI10TA24 PO (18:44)
[2021-06-06] MEDS ORDERED: CARV6.2579 PO (18:44)
[2021-06-06] MEDS: DEXTROSE 5 %-0.45 % NACL 1,000 ML IV SCH (20:03)
[2021-06-06 20:26] LABS: HEPATITIS A IGM ANTIBODY Non-Reactive (Negative); HEPATITIS B CORE IGM ANTIBODY Non-Reactive (Negative); HEPATITIS B SURFACE ANTIGEN Non-Reactive (Negative); HEPATITIS C ANTIBODY Non-Reactive (NEGATIVE)
[2021-06-07] VITALS (75 sets, daily range): BP systolic 90–155; BP diastolic 38–102
[2021-06-07] MEDS: NOREPINEPHRIN 4MG/NS 250ML 250 ML IV SCH (00:52)
[2021-06-07] MEDS: ZOSYN 3.375GM+NS 50ML 50 ML IV SCH ×2 (02:00→15:58)
[2021-06-07 03:36] LABS: HEMATOCRIT 24.9 % (42-54); MEAN CORPUSCULAR HEMOGLOBIN 31.6 pg (27.0-33.0); MEAN CORPUSCULAR HGB CONC 31.7 g/dL (32.0-36.0); MEAN CORPUSCULAR VOLUME 99.6 fL (79-99); RED BLOOD CELL COUNT(AUTO) 2.5 MIL/uL (4.50-6.20); RED CELL DISTRIBUTION WIDTH 15.9 % (11.0-15.5); WHITE BLOOD COUNT (AUTO) 26.9 K/uL (4.8-10.8)
[2021-06-07 03:52] LABS: % IRON SATURATION 6.6 % (30-44)
[2021-06-07 04:05] LABS: ALBUMIN 2.2 g/dL (3.5-5.0); CREATININE 2.1 mg/dL (0.5-1.5); MAGNESIUM 1.8 mg/dL (1.80-2.40); PHOSPHORUS 4.4 mg/dL (2.5-4.9); POTASSIUM 4.2 mmol/L (3.5-5.1); TOTAL PROTEIN, SERUM 4.6 g/dL (6.0-8.3); URIC ACID 4.9 mg/dL (2.6-7.2)
[2021-06-07] MEDS: INSULIN HUMULIN R 100 UNIT/ML 3ML SQ SCH ×4 (05:53→20:39)
[2021-06-07 07:04] LABS: HEMATOCRIT 25.4 % (42-54); MEAN CORPUSCULAR HEMOGLOBIN 32.1 pg (27.0-33.0); MEAN CORPUSCULAR HGB CONC 31.5 g/dL (32.0-36.0); RED BLOOD CELL COUNT(AUTO) 2.49 MIL/uL (4.50-6.20); RED CELL DISTRIBUTION WIDTH 16.2 % (11.0-15.5); WHITE BLOOD COUNT (AUTO) 24.4 K/uL (4.8-10.8)
[2021-06-07] MEDS: HYDROCORTISONE SOD SUCCINATE 100 MG/2 ML VIAL IV SCH ×4 (07:44→23:14)
[2021-06-07] MEDS: THIAMINE HCL 100 MG/ML 2ML VIAL IVP SCH (07:45)
[2021-06-07] MEDS: Vitamin B Complex/Vit C/Folic Acid PO SCH (07:45)
[2021-06-07] MEDS: FAMOTIDINE 20MG VIAL IV SCH (07:45)
[2021-06-07] MEDS: MIDODRINE HCL 5 MG TABLET PO SCH ×3 (07:45→20:36)
[2021-06-07] MEDS: DEXTROSE 5 %-0.45 % NACL 1,000 ML IV SCH ×2 (07:46→23:10)
[2021-06-07] MEDS ORDERED: MAGNESIUM 2GM PREMIX 50ML 50 ML IV SCH (08:00)
[2021-06-07] MEDS ORDERED: PHARMACY COMMUNICATION MISC SCH (08:00)
[2021-06-07] MEDS ORDERED: NOREPINEPHRIN 8MG/250ML NS PMX 250 ML IV PRN (08:00)
[2021-06-08] VITALS (19 sets, daily range): BP systolic 103–139; BP diastolic 52–87
[2021-06-08] MEDS: ZOSYN 3.375GM+NS 50ML 50 ML IV SCH ×2 (03:17→14:30)
[2021-06-08 03:36] LABS: HEMATOCRIT 23.8 % (42-54); MEAN CORPUSCULAR HGB CONC 31.5 g/dL (32.0-36.0); MEAN CORPUSCULAR VOLUME 98.3 fL (79-99); RED BLOOD CELL COUNT(AUTO) 2.42 MIL/uL (4.50-6.20); RED CELL DISTRIBUTION WIDTH 16.5 % (11.0-15.5)
[2021-06-08 03:52] LABS: ALBUMIN 1.9 g/dL (3.5-5.0); BILIRUBIN,TOTAL 1.1 mg/dL (0.2-1.0); MAGNESIUM 2.2 mg/dL (1.80-2.40); POTASSIUM 3.5 mmol/L (3.5-5.1); TOTAL PROTEIN, SERUM 4.7 g/dL (6.0-8.3)
[2021-06-08] MEDS: HYDROCORTISONE SOD SUCCINATE 100 MG/2 ML VIAL IV SCH ×3 (05:37→17:48)
[2021-06-08] MEDS: INSULIN HUMULIN R 100 UNIT/ML 3ML SQ SCH ×4 (06:40→20:08)
[2021-06-08] MEDS: FAMOTIDINE 20MG VIAL IV SCH (08:12)
[2021-06-08] MEDS: THIAMINE HCL 100 MG/ML 2ML VIAL IVP SCH (08:13)
[2021-06-08] MEDS: MIDODRINE HCL 5 MG TABLET PO SCH ×3 (08:13→20:10)
[2021-06-08] MEDS: Vitamin B Complex/Vit C/Folic Acid PO SCH (08:13)
[2021-06-08] MEDS: DEXTROSE 5 %-0.45 % NACL 1,000 ML IV SCH (11:41)
[2021-06-09] MEDS: HYDROCORTISONE SOD SUCCINATE 100 MG/2 ML VIAL IV SCH ×2 (01:17→06:14)
[2021-06-09] MEDS: DEXTROSE 5 %-0.45 % NACL 1,000 ML IV SCH ×2 (01:22→14:40)
[2021-06-09] MEDS: ZOSYN 3.375GM+NS 50ML 50 ML IV SCH ×2 (02:49→14:02)
[2021-06-09 03:26] VITALS: BP 116/60
[2021-06-09 04:16] LABS: BASOPHILS % (AUTO) 0.2 % (0.0-5.0); HEMATOCRIT 28.6 % (42-54); LYMPHOCYTES % (AUTO) 2.1 % (21.0-51.0); MEAN CORPUSCULAR HEMOGLOBIN 31.1 pg (27.0-33.0); MEAN CORPUSCULAR HGB CONC 31.5 g/dL (32.0-36.0); MONOCYTES % (AUTO) 1.5 % (3.0-13.0); NEUTROPHILS % (AUTO) 94.2 % (40.0-77.0); PLATELET COUNT (AUTO) 54 K/uL (130-400); RED BLOOD CELL COUNT(AUTO) 2.89 MIL/uL (4.50-6.20); RED CELL DISTRIBUTION WIDTH 16.9 % (11.0-15.5); WHITE BLOOD COUNT (AUTO) 28.2 K/uL (4.8-10.8)
[2021-06-09 04:42] LABS: ALBUMIN 2.2 g/dL (3.5-5.0); BILIRUBIN,TOTAL 0.8 mg/dL (0.2-1.0); CREATININE 2.4 mg/dL (0.5-1.5); POTASSIUM 3.2 mmol/L (3.5-5.1); TOTAL PROTEIN, SERUM 5.4 g/dL (6.0-8.3)
[2021-06-09] MEDS: INSULIN HUMULIN R 100 UNIT/ML 3ML SQ SCH ×4 (06:34→20:45)
[2021-06-09 08:03] VITALS: BP 126/57
[2021-06-09] MEDS: MIDODRINE HCL 5 MG TABLET PO SCH ×3 (09:32→20:48)
[2021-06-09] MEDS: PREDNISONE 20 MG TABLET PO SCH (09:32)
[2021-06-09] MEDS: Vitamin B Complex/Vit C/Folic Acid PO SCH (09:32)
[2021-06-09] MEDS: FAMOTIDINE 20MG VIAL IV SCH (09:32)
[2021-06-09] MEDS: THIAMINE HCL 100 MG/ML 2ML VIAL IVP SCH (09:32)
[2021-06-09 11:52] VITALS: BP 146/65
[2021-06-09 16:05] VITALS: BP 146/65
[2021-06-09 19:09] VITALS: BP 113/60
[2021-06-09 23:22] VITALS: BP 136/65
[2021-06-10] MEDS: ZOSYN 3.375GM+NS 50ML 50 ML IV SCH ×2 (03:12→15:00)
[2021-06-10 03:20] VITALS: BP 136/62
[2021-06-10] MEDS: DEXTROSE 5 %-0.45 % NACL 1,000 ML IV SCH ×2 (03:28→17:20)
[2021-06-10 03:31] LABS: BASOPHILS % (AUTO) 0.2 % (0.0-5.0); EOSINOPHILS % (AUTO) 0.1 % (0.0-8.0); HEMATOCRIT 25.2 % (42-54); LYMPHOCYTES % (AUTO) 2.9 % (21.0-51.0); MEAN CORPUSCULAR HEMOGLOBIN 31.2 pg (27.0-33.0); MEAN CORPUSCULAR HGB CONC 32.1 g/dL (32.0-36.0); MEAN CORPUSCULAR VOLUME 96.9 fL (79-99); MONOCYTES % (AUTO) 2.8 % (3.0-13.0); NEUTROPHILS % (AUTO) 93.6 % (40.0-77.0); PLATELET COUNT (AUTO) 57 K/uL (130-400); WHITE BLOOD COUNT (AUTO) 15.8 K/uL (4.8-10.8)
[2021-06-10 03:48] LABS: BILIRUBIN,TOTAL 0.8 mg/dL (0.2-1.0); CREATININE 2.1 mg/dL (0.5-1.5); MAGNESIUM 2.1 mg/dL (1.80-2.40); POTASSIUM 3.1 mmol/L (3.5-5.1); TOTAL PROTEIN, SERUM 4.7 g/dL (6.0-8.3)
[2021-06-10] MEDS: INSULIN HUMULIN R 100 UNIT/ML 3ML SQ SCH ×3 (06:30→16:43)
[2021-06-10 08:00] VITALS: BP 130/70
[2021-06-10] MEDS: MIDODRINE HCL 5 MG TABLET PO SCH ×2 (09:00→13:10)
[2021-06-10] MEDS: THIAMINE HCL 100 MG/ML 2ML VIAL IVP SCH (09:21)
[2021-06-10] MEDS: FAMOTIDINE 20MG VIAL IV SCH (09:21)
[2021-06-10] MEDS: Vitamin B Complex/Vit C/Folic Acid PO SCH (09:22)
[2021-06-10] MEDS: PREDNISONE 20 MG TABLET PO SCH (09:22)
[2021-06-10 12:00] VITALS: BP 123/58
[2021-06-10 16:00] VITALS: BP 122/59
[2021-06-10] MEDS ORDERED: LEVO500T90 PO (16:26)
[2021-06-10] MEDS ORDERED: FLUC150T48 PO (16:26)
== END 2021-06-10 18:20 | disposition home or self-care (01) | DRG 871 ==
LOC: EDH 21:17 → OBSVTOIN 23:33 → EDHIP 23:33 → 2BH 06-06 14:24 → 4DH 06-08 12:44
PROVIDERS: ADMIT Internal Medicine Critical Care Medicine; ATTEND Internal Medicine Critical Care Medicine
DX: A41.9 Sepsis, unspecified organism (principal); R65.21 Severe sepsis with septic shock; K85.10 Biliary acute pancreatitis without necrosis or infection; N17.9 Acute kidney failure, unspecified; I12.9 Hypertensive chronic kidney disease with stage 1 through stage 4 chronic kidney disease, or unspecified chronic kidney disease; N18.9 Chronic kidney disease, unspecified; E78.00 Pure hypercholesterolemia, unspecified; I25.10 Atherosclerotic heart disease of native coronary artery without angina pectoris; E78.5 Hyperlipidemia, unspecified; D69.6 Thrombocytopenia, unspecified; D50.9 Iron deficiency anemia, unspecified; E11.22 Type 2 diabetes mellitus with diabetic chronic kidney disease; R79.89 Other specified abnormal findings of blood chemistry; D46.9 Myelodysplastic syndrome, unspecified; I25.2 Old myocardial infarction; Z79.84 Long term (current) use of oral hypoglycemic drugs; Z79.899 Other long term (current) drug therapy; Z90.49 Acquired absence of other specified parts of digestive tract
CPT/HCPCS: 36415; 71045; 74176; 74181; 76705; 80051; 80053; 80074; 81001; 82010; 82150; 82728; 82948; 83540; 83550; 83605; 83690; 83735; 83935; 84100; 84484; 84550; 85025; 85027; 85610; 85730; 87040; C1751; C1894; G0378; J1650; J1720; J1815; J2405; J2543; J3411; J3475; J3490; J7030; J7040; J7042; P9046

== ENCOUNTER 2021-09-17 12:31 | Observation (INO) | payer MEDICARE ==
[~2021-09-17] VITALS: Ht 154.9 cm; Wt 61.2 kg
[~2021-09-17 12:31] MED LIST changes: -ASPI-1005 PO; -ATOR40TA69 PO; +BETA1TAB20 PO; +CARV6.2579 PO; +DAPA5TAB PO; -FERR325T22 PO; +FLUC150T48 PO; +FOLI0.8C PO; -HYDR12.54 PO; +LEVO500T90 PO; +LISI10TA24 PO; -LISI20TA24 PO; +TAMS-1 PO
[2021-09-17 13:20] LABS: BASOPHILS % (AUTO) 0.2 % (0.0-5.0); EOSINOPHILS % (AUTO) 0.7 % (0.0-8.0); HEMATOCRIT 33.4 % (42-54); LYMPHOCYTES % (AUTO) 13.1 % (21.0-51.0); MEAN CORPUSCULAR HEMOGLOBIN 30.6 pg (27.0-33.0); MEAN CORPUSCULAR HGB CONC 33.2 g/dL (32.0-36.0); MONOCYTES % (AUTO) 8.6 % (3.0-13.0); PLATELET COUNT (AUTO) 183 K/uL (130-400); RED BLOOD CELL COUNT(AUTO) 3.63 MIL/uL (4.50-6.20); RED CELL DISTRIBUTION WIDTH 12.4 % (11.0-15.5); WHITE BLOOD COUNT (AUTO) 5.7 K/uL (4.8-10.8)
[2021-09-17 13:37] LABS: CARBON DIOXIDE 20 mmol/L (21-32); CHLORIDE 98 mmol/L (101-111); CREATININE 2.4 mg/dL (0.5-1.5); GLOMERULAR FILTR. RATE CALC 28 mL/min (>60); GLUCOSE,RANDOM 168 mg/dL (70-105); POTASSIUM 4.8 mmol/L (3.5-5.1); SODIUM SERUM 131 mmol/L (136-145); UREA NITROGEN, BLOOD 47 mg/dL (7-18)
[2021-09-17 13:41] LABS: ALANINE AMINOTRANSFERASE 25 U/L (12-78); ASPARTATE AMINOTRANSFERASE 13 U/L (10-37); CREATINE KINASE, TOTAL 39 U/L (21-232); TOTAL PROTEIN, SERUM 7.6 g/dL (6.0-8.3)
[2021-09-17 13:45] LABS: CRP QUANTITATIVE < 2.00 mg/L (0.00-9.0)
[2021-09-17] MEDS ORDERED: MAG/ALUM/SIMETH 30 ML UDCUP PO PRN (19:30)
[2021-09-17] MEDS ORDERED: GUAIFENESIN-DM 200/20 MG 10 ML PO PRN (19:30)
[2021-09-17] MEDS ORDERED: ONDANSETRON 4MG INJ IV PRN (19:30)
[2021-09-17] MEDS ORDERED: DEXTROSE 50%-WATER 50 ML DISP.SYRIN IV PRN (19:30)
[2021-09-17] MEDS ORDERED: ACETAMINOPHEN 325 MG TAB PO PRN ×2 (19:30)
[2021-09-17] MEDS ORDERED: GLUCAGON 1MG KIT 1 MG ML IM PRN (19:30)
[2021-09-17] MEDS ORDERED: DiphenhydrAMINE HCL 50 MG/ML VIAL IV PRN (19:30)
[2021-09-17] MEDS ORDERED: LACTULOSE 20 GM/30 ML UDCUP PO PRN (19:30)
[2021-09-17 19:57] LABS: PROTHROMBIN TIME 10.9 SEC (9.6-11.6)
[2021-09-17 19:58] LABS: PARTIAL THROMBOPLASTIN TIME 26.7 SEC (26.3-35.5)
[2021-09-17] MEDS: FAMOTIDINE 20MG VIAL IV SCH (20:12)
[2021-09-17] MEDS: 0.9%NACL 1000ML 1,000 ML IV SCH (20:12)
[2021-09-17 20:30] LABS: APPEARANCE,URINE Clear (CLEAR); BILIRUBIN,URINE Negative (NEGATIVE); COLOR,URINE Yellow (YELLOW); GLUCOSE, URINE (UA) Negative (NEGATIVE); KETONES,URINE Trace mg/dL (NEGATIVE); LEUKOCYTE ESTERASE ,URINE Negative (NEGATIVE); NITRATE,URINE Negative (NEGATIVE); OCCULT BLOOD,URINE Negative (NEGATIVE); PROTEIN,URINE POS 1+ mg/dL (NEGATIVE); UROBILINOGEN,URINE 0.2 mg/dL (0.2-1.0)
[2021-09-17] MEDS: INSULIN HUMULIN R 100 UNIT/ML 3ML SQ SCH (21:00)
[2021-09-17 21:06] LABS: BACTERIA,URINE None Seen /HPF (None Seen); MUCUS,URINE Rare LPF (None Seen); RBC,URINE None Seen /HPF (0-1); SQUAMOUS EPITHELIAL CELL,UR Rare /HPF (0-2); WBC,URINE None Seen /HPF (0-1)
[2021-09-17] MEDS: HEPARIN 5,000 UNIT VIAL SQ SCH (21:13)
[2021-09-17] MEDS: TAMSULOSIN HCL 0.4 MG CAP.ER.24H PO SCH (21:17)
[2021-09-17] MEDS: FINASTERIDE 5 MG TABLET PO SCH (21:17)
[2021-09-17 22:59] LABS: CHLORIDE,URINE RANDOM 79 mmol/L (110-250); POTASSIUM,URINE RANDOM 35 mmol/L (25-125); SODIUM,URINE RANDOM 75 mmol/l (40-220)
[2021-09-17 23:46] VITALS: BP 162/77
[2021-09-18 00:39] LABS: ABG HCO3 16.2 mmol/L (21.0-28.0); ABG OXYGEN SATURATION 97.3 % (95.0-99.0); ABG PCO2 30 mmHg (35-48)
[2021-09-18 01:26] LABS: CREATININE 2.1 mg/dL (0.5-1.5); POTASSIUM 4.8 mmol/L (3.5-5.1)
[2021-09-18] MEDS: SODIUM BICARB 50MEQ 50ML VIAL IV SCH (03:38)
[2021-09-18 04:54] LABS: BASOPHILS % (AUTO) 0.2 % (0.0-5.0); EOSINOPHILS % (AUTO) 0.8 % (0.0-8.0); HEMATOCRIT 32.4 % (42-54); LYMPHOCYTES % (AUTO) 11.1 % (21.0-51.0); MEAN CORPUSCULAR HGB CONC 34.3 g/dL (32.0-36.0); MEAN CORPUSCULAR VOLUME 90.5 fL (79-99); MONOCYTES % (AUTO) 8.9 % (3.0-13.0); NEUTROPHILS % (AUTO) 78.6 % (40.0-77.0); PLATELET COUNT (AUTO) 152 K/uL (130-400); RED BLOOD CELL COUNT(AUTO) 3.58 MIL/uL (4.50-6.20); RED CELL DISTRIBUTION WIDTH 12.1 % (11.0-15.5); WHITE BLOOD COUNT (AUTO) 5.3 K/uL (4.8-10.8)
[2021-09-18 05:03] VITALS: BP 104/49
[2021-09-18 05:12] LABS: POTASSIUM 4.8 mmol/L (3.5-5.1)
[2021-09-18] MEDS: INSULIN HUMULIN R 100 UNIT/ML 3ML SQ SCH ×4 (06:01→20:06)
[2021-09-18 08:00] VITALS: BP 124/45
[2021-09-18] MEDS: FINASTERIDE 5 MG TABLET PO SCH (08:36)
[2021-09-18] MEDS: TAMSULOSIN HCL 0.4 MG CAP.ER.24H PO SCH (08:36)
[2021-09-18] MEDS: FAMOTIDINE 20MG VIAL IV SCH (08:36)
[2021-09-18] MEDS: HEPARIN 5,000 UNIT VIAL SQ SCH ×2 (08:41→20:00)
[2021-09-18 12:00] VITALS: BP 126/57
[2021-09-18 16:00] VITALS: BP 125/43
[2021-09-18] MEDS: 0.9%NACL 1000ML 1,000 ML IV SCH (18:05)
[2021-09-18 19:00] VITALS: BP 133/47
[2021-09-18 23:21] VITALS: BP 137/56
[2021-09-19] MEDS: 0.9%NACL 1000ML 1,000 ML IV SCH ×2 (00:15→03:26)
[2021-09-19] MEDS: SODIUM BICARB 50MEQ 50ML VIAL IV SCH (03:00)
[2021-09-19 04:00] VITALS: BP 145/61
[2021-09-19 05:11] LABS: BASOPHILS % (AUTO) 0.2 % (0.0-5.0); EOSINOPHILS % (AUTO) 0.7 % (0.0-8.0); HEMATOCRIT 30.2 % (42-54); LYMPHOCYTES % (AUTO) 13.9 % (21.0-51.0); MEAN CORPUSCULAR HEMOGLOBIN 30.8 pg (27.0-33.0); MEAN CORPUSCULAR HGB CONC 34.1 g/dL (32.0-36.0); MEAN CORPUSCULAR VOLUME 90.4 fL (79-99); MONOCYTES % (AUTO) 11.5 % (3.0-13.0); NEUTROPHILS % (AUTO) 73.5 % (40.0-77.0); PLATELET COUNT (AUTO) 140 K/uL (130-400); RED BLOOD CELL COUNT(AUTO) 3.34 MIL/uL (4.50-6.20); RED CELL DISTRIBUTION WIDTH 12.4 % (11.0-15.5); WHITE BLOOD COUNT (AUTO) 4.2 K/uL (4.8-10.8)
[2021-09-19 05:26] LABS: ALBUMIN 3.4 g/dL (3.5-5.0); CREATININE 1.9 mg/dL (0.5-1.5); MAGNESIUM 2.1 mg/dL (1.80-2.40); POTASSIUM 4.5 mmol/L (3.5-5.1); TOTAL PROTEIN, SERUM 6.6 g/dL (6.0-8.3)
[2021-09-19] MEDS: INSULIN HUMULIN R 100 UNIT/ML 3ML SQ SCH ×4 (06:39→22:13)
[2021-09-19 08:00] VITALS: BP 126/59
[2021-09-19] MEDS: TAMSULOSIN HCL 0.4 MG CAP.ER.24H PO SCH (08:50)
[2021-09-19] MEDS: FAMOTIDINE 20MG VIAL IV SCH (08:50)
[2021-09-19] MEDS: FINASTERIDE 5 MG TABLET PO SCH (08:50)
[2021-09-19] MEDS: HEPARIN 5,000 UNIT VIAL SQ SCH ×2 (08:52→22:14)
[2021-09-19 12:00] VITALS: BP 133/41
[2021-09-19 16:00] VITALS: BP 121/54
[2021-09-19 19:27] VITALS: BP 147/52
[2021-09-19 23:41] VITALS: BP 144/61
[2021-09-20] MEDS: SODIUM BICARB 50MEQ 50ML VIAL IV SCH (03:00)
[2021-09-20 03:52] VITALS: BP 137/60
[2021-09-20] MEDS: 0.9%NACL 1000ML 1,000 ML IV SCH (04:42)
[2021-09-20 05:12] LABS: BASOPHILS % (AUTO) 0.4 % (0.0-5.0); EOSINOPHILS % (AUTO) 0.7 % (0.0-8.0); HEMATOCRIT 29.7 % (42-54); LYMPHOCYTES % (AUTO) 14.5 % (21.0-51.0); MEAN CORPUSCULAR HEMOGLOBIN 31.1 pg (27.0-33.0); MEAN CORPUSCULAR HGB CONC 34.3 g/dL (32.0-36.0); MEAN CORPUSCULAR VOLUME 90.5 fL (79-99); MONOCYTES % (AUTO) 11.7 % (3.0-13.0); NEUTROPHILS % (AUTO) 72.5 % (40.0-77.0); PLATELET COUNT (AUTO) 141 K/uL (130-400); RED BLOOD CELL COUNT(AUTO) 3.28 MIL/uL (4.50-6.20); RED CELL DISTRIBUTION WIDTH 12.1 % (11.0-15.5); WHITE BLOOD COUNT (AUTO) 4.5 K/uL (4.8-10.8)
[2021-09-20 05:25] LABS: ALBUMIN 3.3 g/dL (3.5-5.0); CREATININE 1.8 mg/dL (0.5-1.5); TOTAL PROTEIN, SERUM 6.6 g/dL (6.0-8.3)
[2021-09-20] MEDS: INSULIN HUMULIN R 100 UNIT/ML 3ML SQ SCH ×3 (07:29→16:30)
[2021-09-20 08:00] VITALS: BP 155/87
[2021-09-20] MEDS: FAMOTIDINE 20MG VIAL IV SCH (09:05)
[2021-09-20] MEDS: TAMSULOSIN HCL 0.4 MG CAP.ER.24H PO SCH (09:05)
[2021-09-20] MEDS: FINASTERIDE 5 MG TABLET PO SCH (09:05)
[2021-09-20] MEDS: HEPARIN 5,000 UNIT VIAL SQ SCH (09:19)
[2021-09-20 12:16] VITALS: BP 129/67
== END 2021-09-20 18:00 | disposition home or self-care (01) ==
LOC: EDH 12:31 → INTOOBSV 19:01 → EDHIP 19:01 → 3AH 21:27
PROVIDERS: ADMIT Hospitalist; ATTEND Hospitalist
DX: G93.41 Metabolic encephalopathy (principal); Z20.822 Contact with and (suspected) exposure to COVID-19; H92.09 Otalgia, unspecified ear; I12.9 Hypertensive chronic kidney disease with stage 1 through stage 4 chronic kidney disease, or unspecified chronic kidney disease; N18.4 Chronic kidney disease, stage 4 (severe); E11.22 Type 2 diabetes mellitus with diabetic chronic kidney disease; E78.5 Hyperlipidemia, unspecified; R77.8 Other specified abnormalities of plasma proteins; R53.1 Weakness; R53.81 Other malaise; R63.0 Anorexia; E46 Unspecified protein-calorie malnutrition; E78.00 Pure hypercholesterolemia, unspecified; E86.0 Dehydration; E87.2 Acidosis; F02.80 Dementia in other diseases classified elsewhere, unspecified severity, without behavioral disturbance, psychotic disturbance, mood disturbance, and anxiety; G20 Parkinson's disease; I25.2 Old myocardial infarction; R62.7 Adult failure to thrive; G93.89 Other specified disorders of brain; E86.9 Volume depletion, unspecified; N28.9 Disorder of kidney and ureter, unspecified; H93.19 Tinnitus, unspecified ear; J10.1 Influenza due to other identified influenza virus with other respiratory manifestations; R26.89 Other abnormalities of gait and mobility; Z79.84 Long term (current) use of oral hypoglycemic drugs; Z79.899 Other long term (current) drug therapy; Z98.890 Other specified postprocedural states; Z90.49 Acquired absence of other specified parts of digestive tract; Z68.25 Body mass index [BMI] 25.0-25.9, adult
CPT/HCPCS: 36415; 36600; 70450; 70480; 71045; 72148; 76770; 80048; 80051; 80053; 81001; 82550; 82803; 82948; 83605; 83735; 84134; 84484; 85025; 85378; 85610; 85730; 86140; 87635; 87804; 93005; 96361; 96372; 96374; 96375; 96376; 97039; C9803; G0378; J1644; J1815; J3490; J7030

== ENCOUNTER 2021-09-27 18:55 | Inpatient (IN) | payer MEDICARE ==
[~2021-09-27] VITALS: Ht 167.6 cm; Wt 52.8 kg
[~2021-09-27 18:55] MED LIST changes: +LEVO-70 PO; -LEVO500T90 PO
[2021-09-27] MEDS ORDERED: 0.9%NACL 1000ML 1,000 ML IV ONE (19:30)
[2021-09-27 19:36] LABS: BASOPHILS % (AUTO) 0.1 % (0.0-5.0); EOSINOPHILS % (AUTO) 0.2 % (0.0-8.0); HEMATOCRIT 33.7 % (42-54); LYMPHOCYTES % (AUTO) 8.4 % (21.0-51.0); MEAN CORPUSCULAR HGB CONC 33.5 g/dL (32.0-36.0); MEAN CORPUSCULAR VOLUME 92.6 fL (79-99); MONOCYTES % (AUTO) 7.7 % (3.0-13.0); PLATELET COUNT (AUTO) 144 K/uL (130-400); RED BLOOD CELL COUNT(AUTO) 3.64 MIL/uL (4.50-6.20); RED CELL DISTRIBUTION WIDTH 12.7 % (11.0-15.5); WHITE BLOOD COUNT (AUTO) 8.9 K/uL (4.8-10.8)
[2021-09-27 19:48] LABS: CREATININE 3.6 mg/dL (0.5-1.5); POTASSIUM 4.8 mmol/L (3.5-5.1)
[2021-09-27 19:53] LABS: ALBUMIN 3.2 g/dL (3.5-5.0); TOTAL PROTEIN, SERUM 6.6 g/dL (6.0-8.3)
[2021-09-27 20:04] LABS: APPEARANCE,URINE CLOUDY (CLEAR); BILIRUBIN,URINE NEGATIVE (NEGATIVE); COLOR,URINE YELLOW (YELLOW); GLUCOSE, URINE (UA) >=1000 mg/dL (NEGATIVE); KETONES,URINE 5 mg/dL (NEGATIVE); LEUKOCYTE ESTERASE ,URINE MODERATE (NEGATIVE); NITRATE,URINE NEGATIVE (NEGATIVE); OCCULT BLOOD,URINE LARGE (NEGATIVE); PH,URINE 5.5 (5.0-8.0); PROTEIN,URINE 30 mg/dL (NEGATIVE); UROBILINOGEN,URINE 0.2 mg/dL (0.2-1.0)
[2021-09-27 20:14] LABS: BACTERIA,URINE Many /HPF (None Seen)
[2021-09-27 20:15] LABS: COARSE GRANULAR CASTS,URINE 0-2 /LPF (None Seen)
[2021-09-27 20:19] LABS: WBC,URINE 51-100 /HPF (0-1)
[2021-09-27 20:21] LABS: MUCUS,URINE Few LPF (None Seen)
[2021-09-27] MEDS ORDERED: CEFTRIAXONE 1G VIAL IVP ONE (20:30)
[2021-09-27] MEDS: 0.9%NACL 1000ML 1,000 ML IV SCH (20:53)
[2021-09-27] MEDS: CEFTRIAXONE 1G VIAL IVP SCH (20:53)
[2021-09-27] MEDS ORDERED: ONDANSETRON 4MG INJ IVP PRN (21:00)
[2021-09-27] MEDS ORDERED: LACTULOSE 20 GM/30 ML UDCUP PR PRN (21:00)
[2021-09-27] MEDS ORDERED: ACETAMINOPHEN 325 MG TAB PO PRN (21:00)
[2021-09-27] MEDS ORDERED: CLONIDINE HCL 0.1 MG TABLET PO PRN (21:00)
[2021-09-27 23:05] VITALS: BP 114/61
[2021-09-28] MEDS ORDERED: GUAI5LIQ13 PO (03:30)
[2021-09-28] MEDS ORDERED: FINA5TAB2 PO (03:30)
[2021-09-28] MEDS ORDERED: FAMO-136 PO (03:30)
[2021-09-28] MEDS ORDERED: ONDA22I PO (03:30)
[2021-09-28] MEDS ORDERED: FOLI0.8T22 PO (03:30)
[2021-09-28] MEDS ORDERED: FOLI0.8C PO (03:30)
[2021-09-28] MEDS ORDERED: DAPA5TAB PO (03:30)
[2021-09-28] MEDS ORDERED: TAMS-1 PO (03:30)
[2021-09-28] MEDS ORDERED: CYAN5POW PO (03:30)
[2021-09-28] MEDS ORDERED: MAG-37 PO (03:30)
[2021-09-28] MEDS ORDERED: LACT10SO9 PO (03:30)
[2021-09-28] MEDS ORDERED: BETA1TAB20 PO (03:30)
[2021-09-28] MEDS ORDERED: LISI10TA24 PO (03:30)
[2021-09-28] MEDS ORDERED: MIRT-92 PO (03:30)
[2021-09-28] MEDS ORDERED: GABA300S PO (03:30)
[2021-09-28] MEDS ORDERED: METF-444 PO (03:30)
[2021-09-28 04:00] VITALS: BP 120/58
[2021-09-28 04:54] LABS: BASOPHILS % (AUTO) 0.2 % (0.0-5.0); EOSINOPHILS % (AUTO) 0.5 % (0.0-8.0); HEMATOCRIT 30.6 % (42-54); LYMPHOCYTES % (AUTO) 8.8 % (21.0-51.0); MEAN CORPUSCULAR HGB CONC 33.3 g/dL (32.0-36.0); MONOCYTES % (AUTO) 7.6 % (3.0-13.0); NEUTROPHILS % (AUTO) 82.3 % (40.0-77.0); PLATELET COUNT (AUTO) 123 K/uL (130-400); RED BLOOD CELL COUNT(AUTO) 3.29 MIL/uL (4.50-6.20); RED CELL DISTRIBUTION WIDTH 12.7 % (11.0-15.5); WHITE BLOOD COUNT (AUTO) 9.4 K/uL (4.8-10.8)
[2021-09-28 05:09] LABS: POTASSIUM 4.7 mmol/L (3.5-5.1)
[2021-09-28 08:13] VITALS: BP 151/61
[2021-09-28] MEDS: 0.9%NACL 1000ML 1,000 ML IV SCH ×2 (08:44→22:48)
[2021-09-28] MEDS: PANTOPRAZOLE 40 MG TAB DR PO SCH (08:45)
[2021-09-28] MEDS: ENOXAPARIN SODIUM 30 MG/0.3 ML SQ SCH (08:54)
[2021-09-28] MEDS: INSULIN HUMULIN R 100 UNIT/ML 3ML SQ SCH ×3 (11:30→21:00)
[2021-09-28] MEDS ORDERED: DEXTROSE 50%-WATER 50 ML DISP.SYRIN IV PRN (11:30)
[2021-09-28] MEDS ORDERED: GLUCAGON 1MG KIT 1 MG ML IM PRN (11:30)
[2021-09-28 11:32] VITALS: BP 128/56
[2021-09-28 15:57] VITALS: BP 133/71
[2021-09-28 20:01] VITALS: BP 133/41
[2021-09-28] MEDS: CEFTRIAXONE 1G VIAL IVP SCH (22:46)
[2021-09-28 23:23] VITALS: BP 125/60
[2021-09-29 03:20] VITALS: BP 133/61
[2021-09-29 05:42] LABS: BASOPHILS % (AUTO) 0.2 % (0.0-5.0); EOSINOPHILS % (AUTO) 0.9 % (0.0-8.0); HEMATOCRIT 30.2 % (42-54); LYMPHOCYTES % (AUTO) 8.7 % (21.0-51.0); MEAN CORPUSCULAR HEMOGLOBIN 30.8 pg (27.0-33.0); MEAN CORPUSCULAR HGB CONC 32.8 g/dL (32.0-36.0); MEAN CORPUSCULAR VOLUME 94.1 fL (79-99); MONOCYTES % (AUTO) 7.1 % (3.0-13.0); NEUTROPHILS % (AUTO) 82.3 % (40.0-77.0); PLATELET COUNT (AUTO) 142 K/uL (130-400); RED BLOOD CELL COUNT(AUTO) 3.21 MIL/uL (4.50-6.20); RED CELL DISTRIBUTION WIDTH 12.6 % (11.0-15.5); WHITE BLOOD COUNT (AUTO) 8.7 K/uL (4.8-10.8)
[2021-09-29] MEDS: INSULIN HUMULIN R 100 UNIT/ML 3ML SQ SCH ×4 (06:05→21:00)
[2021-09-29 06:06] LABS: ALBUMIN 2.9 g/dL (3.5-5.0); CREATININE 2.5 mg/dL (0.5-1.5); PHOSPHORUS 4.2 mg/dL (2.5-4.9); POTASSIUM 4.8 mmol/L (3.5-5.1); TOTAL PROTEIN, SERUM 6.2 g/dL (6.0-8.3); URIC ACID 8.7 mg/dL (2.6-7.2)
[2021-09-29 08:00] VITALS: BP 144/74
[2021-09-29] MEDS: PANTOPRAZOLE 40 MG TAB DR PO SCH (08:04)
[2021-09-29] MEDS: THIAMINE HCL 100 MG/ML 2ML VIAL IVP SCH (08:04)
[2021-09-29] MEDS: Vitamin B Complex/Vit C/Folic Acid PO SCH (08:05)
[2021-09-29] MEDS: ENOXAPARIN SODIUM 30 MG/0.3 ML SQ SCH (08:06)
[2021-09-29] MEDS ORDERED: ONDANSETRON 4MG INJ ONE (10:30)
[2021-09-29] MEDS ORDERED: ROCURONIUM 10MG/1ML SYR 10 MG/ML ML ONE (10:30)
[2021-09-29] MEDS ORDERED: FENTANYL CITRATE PF 50 MCG/1 ML 5ML AMP IV ONE (10:30)
[2021-09-29] MEDS ORDERED: PROPOFOL 10 MG/ML 20ML VIAL IV ONE (10:30)
[2021-09-29] MEDS ORDERED: MIDAZOLAM HCL 1 MG/ML 2ML VIAL ONE (10:31)
[2021-09-29] MEDS: 0.9%NACL 1000ML 1,000 ML IV SCH (13:00)
[2021-09-29 13:24] VITALS: BP 148/73
[2021-09-29] MEDS ORDERED: LACTULOSE 20 GM/30 ML UDCUP PO SCH (13:30)
[2021-09-29] MEDS ORDERED: ONDANSETRON 4MG INJ IV PRN (13:30)
[2021-09-29] MEDS ORDERED: GUAIFENESIN-DM 200/20 MG 10 ML PO PRN (13:30)
[2021-09-29] MEDS ORDERED: MAG/ALUM/SIMETH 30 ML UDCUP PO PRN (13:30)
[2021-09-29 17:00] VITALS: BP 144/74
[2021-09-29 21:11] VITALS: BP 158/82
[2021-09-29] MEDS: TAMSULOSIN HCL 0.4 MG CAP.ER.24H PO SCH (21:13)
[2021-09-29] MEDS: GABAPENTIN 300 MG CAPSULE PO SCH (21:13)
[2021-09-29] MEDS: MIRTAZAPINE 15 MG TABLET PO SCH (21:13)
[2021-09-29] MEDS: CEFTRIAXONE 1G VIAL IVP SCH (21:13)
[2021-09-29 23:58] VITALS: BP 149/75
[2021-09-30 04:47] VITALS: BP 120/60
[2021-09-30] MEDS: INSULIN HUMULIN R 100 UNIT/ML 3ML SQ SCH ×4 (06:26→20:54)
[2021-09-30] MEDS: 0.9%NACL 1000ML 1,000 ML IV SCH ×3 (06:26→21:00)
[2021-09-30 06:33] LABS: PLATELET COUNT (AUTO) 122 K/uL (130-400); RED BLOOD CELL COUNT(AUTO) 3.19 MIL/uL (4.50-6.20); RED CELL DISTRIBUTION WIDTH 12.5 % (11.0-15.5); WHITE BLOOD COUNT (AUTO) 7.8 K/uL (4.8-10.8)
[2021-09-30 06:53] LABS: ALBUMIN 2.8 g/dL (3.5-5.0); CREATININE 2.4 mg/dL (0.5-1.5); POTASSIUM 4.5 mmol/L (3.5-5.1); TOTAL PROTEIN, SERUM 5.9 g/dL (6.0-8.3)
[2021-09-30] MEDS: GABAPENTIN 300 MG CAPSULE PO SCH ×2 (07:58→21:00)
[2021-09-30] MEDS: CYANOCOBALAMIN (VITAMIN B-12) 1,000 MCG TABLET PO SCH (07:58)
[2021-09-30] MEDS: Vitamin B Complex/Vit C/Folic Acid PO SCH (07:58)
[2021-09-30] MEDS: FAMOTIDINE 20MG TAB PO SCH (07:58)
[2021-09-30 08:00] VITALS: BP 138/68
[2021-09-30] MEDS: FINASTERIDE 5 MG TABLET PO SCH (08:02)
[2021-09-30] MEDS: PANTOPRAZOLE 40 MG TAB DR PO SCH (08:02)
[2021-09-30] MEDS: THIAMINE HCL 100 MG/ML 2ML VIAL IVP SCH (08:08)
[2021-09-30] MEDS: DAPAGLIFLOZIN PROPANEDIOL 5 MG PO SCH (09:00)
[2021-09-30] MEDS: ZINC PO SCH (09:00)
[2021-09-30] MEDS ORDERED: LISINOPRIL 10 MG TABLET PO SCH (09:00)
[2021-09-30] MEDS: COPPER PO SCH (09:00)
[2021-09-30] MEDS: **HM**(Folic Acid 0.8 MG PO SCH (09:00)
[2021-09-30] MEDS: VIT C PO SCH (09:00)
[2021-09-30] MEDS: VIT A PO SCH (09:00)
[2021-09-30] MEDS: VIT E PO SCH (09:00)
[2021-09-30] MEDS ORDERED: Vitamin B Complex/Vit C/Folic Acid PO SCH (09:00)
[2021-09-30 09:02] LABS: EOSINOPHILS % (MANUAL) 2 % (1-6); LYMPHOCYTES % (MANUAL) 9 % (22-44); MONOCYTES % (MANUAL) 4 % (2-9); PLATELET MORPHOLOGY COMMENT ADEQUATE; SEGMENTED NEUTROPHILS % 85 % (40-70)
[2021-09-30] MEDS: MEROPENEM 1 GM VIAL IVP SCH ×2 (10:02→21:00)
[2021-09-30 12:00] VITALS: BP 123/58
[2021-09-30] MEDS: ENOXAPARIN SODIUM 30 MG/0.3 ML SQ SCH (13:11)
[2021-09-30 16:00] VITALS: BP 127/68
[2021-09-30] MEDS: TAMSULOSIN HCL 0.4 MG CAP.ER.24H PO SCH (20:59)
[2021-09-30 21:07] VITALS: BP 132/59
[2021-09-30] MEDS: MIRTAZAPINE 15 MG TABLET PO SCH (21:19)
[2021-09-30 23:59] VITALS: BP 139/74
[2021-10-01 03:53] VITALS: BP 110/54
[2021-10-01 05:02] LABS: BASOPHILS % (AUTO) 0.1 % (0.0-5.0); EOSINOPHILS % (AUTO) 1.3 % (0.0-8.0); HEMATOCRIT 30.6 % (42-54); LYMPHOCYTES % (AUTO) 8.2 % (21.0-51.0); MEAN CORPUSCULAR HEMOGLOBIN 30.4 pg (27.0-33.0); MONOCYTES % (AUTO) 6.2 % (3.0-13.0); NEUTROPHILS % (AUTO) 83.6 % (40.0-77.0); PLATELET COUNT (AUTO) 130 K/uL (130-400); RED BLOOD CELL COUNT(AUTO) 3.22 MIL/uL (4.50-6.20); RED CELL DISTRIBUTION WIDTH 12.7 % (11.0-15.5)
[2021-10-01 05:26] LABS: ALBUMIN 2.7 g/dL (3.5-5.0); CREATININE 2.6 mg/dL (0.5-1.5); POTASSIUM 4.3 mmol/L (3.5-5.1)
[2021-10-01 07:13] VITALS: BP 116/57
[2021-10-01] MEDS: INSULIN HUMULIN R 100 UNIT/ML 3ML SQ SCH ×4 (07:30→21:18)
[2021-10-01] MEDS: DAPAGLIFLOZIN PROPANEDIOL 5 MG PO SCH (08:17)
[2021-10-01] MEDS: COPPER PO SCH (08:20)
[2021-10-01] MEDS: **HM**(Folic Acid 0.8 MG PO SCH (08:20)
[2021-10-01] MEDS: VIT E PO SCH (08:20)
[2021-10-01] MEDS: VIT A PO SCH (08:20)
[2021-10-01] MEDS: ZINC PO SCH (08:20)
[2021-10-01] MEDS: VIT C PO SCH (08:20)
[2021-10-01] MEDS: DEXTROSE 5%-WATER 1,000 ML IV SCH (09:00)
[2021-10-01] MEDS: Vitamin B Complex/Vit C/Folic Acid PO SCH (09:00)
[2021-10-01] MEDS: CEFTRIAXONE 1G VIAL IVP SCH (10:38)
[2021-10-01] MEDS: CYANOCOBALAMIN (VITAMIN B-12) 1,000 MCG TABLET PO SCH (10:39)
[2021-10-01] MEDS: FINASTERIDE 5 MG TABLET PO SCH (10:39)
[2021-10-01] MEDS: PANTOPRAZOLE 40 MG TAB DR PO SCH (10:39)
[2021-10-01] MEDS: POLYETHYLENE GLYCOL 3350 17 GM POWD.PACK PO SCH (10:40)
[2021-10-01] MEDS: THIAMINE HCL 100 MG/ML 2ML VIAL IVP SCH (10:40)
[2021-10-01] MEDS: GABAPENTIN 300 MG CAPSULE PO SCH ×2 (10:40→21:08)
[2021-10-01] MEDS: FAMOTIDINE 20MG TAB PO SCH (10:40)
[2021-10-01] MEDS: ENOXAPARIN SODIUM 30 MG/0.3 ML SQ SCH (10:41)
[2021-10-01 12:05] VITALS: BP 157/59
[2021-10-01 16:08] VITALS: BP 135/58
[2021-10-01 20:19] VITALS: BP 162/70
[2021-10-01] MEDS: TAMSULOSIN HCL 0.4 MG CAP.ER.24H PO SCH (21:08)
[2021-10-01] MEDS: MIRTAZAPINE 15 MG TABLET PO SCH (21:10)
[2021-10-02 00:37] VITALS: BP 158/78
[2021-10-02 04:13] VITALS: BP 151/64
[2021-10-02] MEDS: DEXTROSE 5%-WATER 1,000 ML IV SCH ×3 (04:48→21:41)
[2021-10-02 05:08] LABS: BASOPHILS % (AUTO) 0.2 % (0.0-5.0); EOSINOPHILS % (AUTO) 1.5 % (0.0-8.0); HEMATOCRIT 30.1 % (42-54); LYMPHOCYTES % (AUTO) 7.2 % (21.0-51.0); MEAN CORPUSCULAR HEMOGLOBIN 30.5 pg (27.0-33.0); MEAN CORPUSCULAR HGB CONC 32.2 g/dL (32.0-36.0); MEAN CORPUSCULAR VOLUME 94.7 fL (79-99); MONOCYTES % (AUTO) 6.2 % (3.0-13.0); NEUTROPHILS % (AUTO) 84.3 % (40.0-77.0); PLATELET COUNT (AUTO) 127 K/uL (130-400); RED BLOOD CELL COUNT(AUTO) 3.18 MIL/uL (4.50-6.20); RED CELL DISTRIBUTION WIDTH 12.3 % (11.0-15.5); WHITE BLOOD COUNT (AUTO) 9.4 K/uL (4.8-10.8)
[2021-10-02 05:23] LABS: CREATININE 2.4 mg/dL (0.5-1.5); PHOSPHORUS 2.9 mg/dL (2.5-4.9); POTASSIUM 3.9 mmol/L (3.5-5.1)
[2021-10-02 07:08] VITALS: BP 105/58
[2021-10-02] MEDS: INSULIN HUMULIN R 100 UNIT/ML 3ML SQ SCH ×4 (07:13→21:00)
[2021-10-02] MEDS: DAPAGLIFLOZIN PROPANEDIOL 5 MG PO SCH (09:00)
[2021-10-02] MEDS: Vitamin B Complex/Vit C/Folic Acid PO SCH (09:00)
[2021-10-02] MEDS: VIT E PO SCH (09:00)
[2021-10-02] MEDS: VIT A PO SCH (09:00)
[2021-10-02] MEDS: VIT C PO SCH (09:00)
[2021-10-02] MEDS: COPPER PO SCH (09:00)
[2021-10-02] MEDS: **HM**(Folic Acid 0.8 MG PO SCH (09:00)
[2021-10-02] MEDS: ZINC PO SCH (09:00)
[2021-10-02] MEDS: ENOXAPARIN SODIUM 30 MG/0.3 ML SQ SCH (10:36)
[2021-10-02] MEDS: PANTOPRAZOLE 40 MG TAB DR PO SCH (10:36)
[2021-10-02] MEDS: CEFTRIAXONE 1G VIAL IVP SCH (10:36)
[2021-10-02] MEDS: FAMOTIDINE 20MG TAB PO SCH (10:36)
[2021-10-02] MEDS: THIAMINE HCL 100 MG/ML 2ML VIAL IVP SCH (10:36)
[2021-10-02] MEDS: CYANOCOBALAMIN (VITAMIN B-12) 1,000 MCG TABLET PO SCH (10:36)
[2021-10-02] MEDS: POLYETHYLENE GLYCOL 3350 17 GM POWD.PACK PO SCH (10:37)
[2021-10-02] MEDS: GABAPENTIN 300 MG CAPSULE PO SCH ×2 (10:37→21:40)
[2021-10-02] MEDS: FINASTERIDE 5 MG TABLET PO SCH (10:37)
[2021-10-02] MEDS ORDERED: LEVOFLOXACIN 500 MG/D5W 100 ML 100 ML IV SCH (12:00)
[2021-10-02 12:12] VITALS: BP 91/67
[2021-10-02 13:02] LABS: AMMONIA < 3 umol/L (11-32); THYROID STIMULATING HORMONE 0.67 uIU/mL (0.36-3.74)
[2021-10-02 16:06] VITALS: BP 70/41
[2021-10-02 19:00] VITALS: BP 116/64
[2021-10-02] MEDS: MIRTAZAPINE 15 MG TABLET PO SCH (21:40)
[2021-10-02] MEDS: TAMSULOSIN HCL 0.4 MG CAP.ER.24H PO SCH (21:40)
[2021-10-03] VITALS: BP 137/68
[2021-10-03] MEDS ORDERED: 0.9%NACL 1000ML 1,000 ML IV SCH
[2021-10-03 04:00] VITALS: BP 122/64
[2021-10-03 06:00] LABS: BASOPHILS % (AUTO) 0.3 % (0.0-5.0); EOSINOPHILS % (AUTO) 1.4 % (0.0-8.0); LYMPHOCYTES % (AUTO) 9.9 % (21.0-51.0); MEAN CORPUSCULAR HEMOGLOBIN 30.8 pg (27.0-33.0); MEAN CORPUSCULAR HGB CONC 32.4 g/dL (32.0-36.0); MEAN CORPUSCULAR VOLUME 95.1 fL (79-99); MONOCYTES % (AUTO) 7.6 % (3.0-13.0); NEUTROPHILS % (AUTO) 80.1 % (40.0-77.0); PLATELET COUNT (AUTO) 113 K/uL (130-400); RED BLOOD CELL COUNT(AUTO) 3.05 MIL/uL (4.50-6.20); RED CELL DISTRIBUTION WIDTH 12.4 % (11.0-15.5); WHITE BLOOD COUNT (AUTO) 7.4 K/uL (4.8-10.8)
[2021-10-03] MEDS: INSULIN HUMULIN R 100 UNIT/ML 3ML SQ SCH ×3 (06:00→16:33)
[2021-10-03 06:09] LABS: ALBUMIN 2.6 g/dL (3.5-5.0); CREATININE 2.4 mg/dL (0.5-1.5); MAGNESIUM 1.9 mg/dL (1.80-2.40); POTASSIUM 3.7 mmol/L (3.5-5.1)
[2021-10-03 07:20] VITALS: BP 132/66
[2021-10-03] MEDS: DAPAGLIFLOZIN PROPANEDIOL 5 MG PO SCH (09:00)
[2021-10-03] MEDS: COPPER PO SCH (09:00)
[2021-10-03] MEDS: **HM**(Folic Acid 0.8 MG PO SCH (09:00)
[2021-10-03] MEDS: VIT E PO SCH (09:00)
[2021-10-03] MEDS: ZINC PO SCH (09:00)
[2021-10-03] MEDS: VIT C PO SCH (09:00)
[2021-10-03] MEDS: VIT A PO SCH (09:00)
[2021-10-03] MEDS: CYANOCOBALAMIN (VITAMIN B-12) 1,000 MCG TABLET PO SCH (09:34)
[2021-10-03] MEDS: FINASTERIDE 5 MG TABLET PO SCH (09:34)
[2021-10-03] MEDS: FAMOTIDINE 20MG TAB PO SCH (09:34)
[2021-10-03] MEDS: GABAPENTIN 300 MG CAPSULE PO SCH ×2 (09:34→21:06)
[2021-10-03] MEDS: Vitamin B Complex/Vit C/Folic Acid PO SCH (09:34)
[2021-10-03] MEDS: PANTOPRAZOLE 40 MG TAB DR PO SCH (09:34)
[2021-10-03] MEDS: THIAMINE HCL 100 MG/ML 2ML VIAL IVP SCH (09:35)
[2021-10-03] MEDS: POLYETHYLENE GLYCOL 3350 17 GM POWD.PACK PO SCH (09:35)
[2021-10-03] MEDS: ENOXAPARIN SODIUM 30 MG/0.3 ML SQ SCH (09:36)
[2021-10-03 11:20] VITALS: BP 115/55
[2021-10-03 15:15] VITALS: BP 106/55
[2021-10-03 19:00] VITALS: BP 124/59
[2021-10-03] MEDS ORDERED: IPRATROPIUM/ALBUTEROL SULFATE 3 ML SOLUTION IH PRN (20:00)
[2021-10-03] MEDS: MIRTAZAPINE 15 MG TABLET PO SCH (21:06)
[2021-10-03] MEDS: TAMSULOSIN HCL 0.4 MG CAP.ER.24H PO SCH (21:06)
[2021-10-04] VITALS: BP 135/66
[2021-10-04] MEDS: INSULIN HUMULIN R 100 UNIT/ML 3ML SQ SCH ×4 (00:01→17:00)
[2021-10-04 04:00] VITALS: BP 115/54
[2021-10-04 05:06] LABS: BASOPHILS % (AUTO) 0.1 % (0.0-5.0); EOSINOPHILS % (AUTO) 1.3 % (0.0-8.0); HEMATOCRIT 28.2 % (42-54); LYMPHOCYTES % (AUTO) 9.3 % (21.0-51.0); MEAN CORPUSCULAR HEMOGLOBIN 30.8 pg (27.0-33.0); MEAN CORPUSCULAR HGB CONC 32.6 g/dL (32.0-36.0); MEAN CORPUSCULAR VOLUME 94.3 fL (79-99); MONOCYTES % (AUTO) 7.3 % (3.0-13.0); PLATELET COUNT (AUTO) 125 K/uL (130-400); RED BLOOD CELL COUNT(AUTO) 2.99 MIL/uL (4.50-6.20); RED CELL DISTRIBUTION WIDTH 12.3 % (11.0-15.5)
[2021-10-04 05:55] LABS: CREATININE 2.3 mg/dL (0.5-1.5); POTASSIUM 3.7 mmol/L (3.5-5.1)
[2021-10-04 08:00] VITALS: BP_SYST 118; BP_SYST 120; BP_DIAS 49; BP_DIAS 66
[2021-10-04] MEDS: **HM**(Folic Acid 0.8 MG PO SCH (09:00)
[2021-10-04] MEDS: DAPAGLIFLOZIN PROPANEDIOL 5 MG PO SCH (09:00)
[2021-10-04] MEDS: VIT C PO SCH (09:00)
[2021-10-04] MEDS: VIT A PO SCH (09:00)
[2021-10-04] MEDS: VIT E PO SCH (09:00)
[2021-10-04] MEDS: ZINC PO SCH (09:00)
[2021-10-04] MEDS: COPPER PO SCH (09:00)
[2021-10-04] MEDS: Vitamin B Complex/Vit C/Folic Acid PO SCH (09:53)
[2021-10-04] MEDS: THIAMINE HCL 100 MG/ML 2ML VIAL IVP SCH (09:53)
[2021-10-04] MEDS: GABAPENTIN 300 MG CAPSULE PO SCH ×2 (09:54→21:12)
[2021-10-04] MEDS: FAMOTIDINE 20MG TAB PO SCH (09:55)
[2021-10-04] MEDS: PANTOPRAZOLE 40 MG TAB DR PO SCH (09:55)
[2021-10-04] MEDS: FINASTERIDE 5 MG TABLET PO SCH (09:55)
[2021-10-04] MEDS: ENOXAPARIN SODIUM 30 MG/0.3 ML SQ SCH (09:55)
[2021-10-04] MEDS: CYANOCOBALAMIN (VITAMIN B-12) 1,000 MCG TABLET PO SCH (09:56)
[2021-10-04] MEDS: POLYETHYLENE GLYCOL 3350 17 GM POWD.PACK PO SCH (09:56)
[2021-10-04] MEDS: LEVOFLOXACIN 250 MG/D5W 50ML 50 ML IVPB SCH (12:27)
[2021-10-04 12:42] VITALS: BP 115/52
[2021-10-04 16:55] VITALS: BP 113/69
[2021-10-04 19:00] VITALS: BP 141/56
[2021-10-04] MEDS: MIRTAZAPINE 15 MG TABLET PO SCH (21:12)
[2021-10-04] MEDS: TAMSULOSIN HCL 0.4 MG CAP.ER.24H PO SCH (21:12)
[2021-10-04] MEDS ORDERED: VANCOMYCIN 1G VIAL IVPB ONE (23:00)
[2021-10-04] MEDS ORDERED: ZOSYN 3.375GM +NS 50ML IV SCH (23:00)
[2021-10-04] MEDS ORDERED: VANCOMYCIN PROTOCOL PER PHARMACY IV SCH (23:00)
[2021-10-04] MEDS ORDERED: VANCOMYCIN 1G/250ML KIT 250 ML IV ONE (23:30)
[2021-10-04] MEDS: ZOSYN 3.375GM +NS 50ML IV SCH (23:52)
[2021-10-05] VITALS: BP 133/54
[2021-10-05] MEDS: INSULIN HUMULIN R 100 UNIT/ML 3ML SQ SCH ×4 (00:25→18:09)
[2021-10-05 04:00] VITALS: BP 113/54
[2021-10-05 05:11] LABS: BASOPHILS % (AUTO) 0.3 % (0.0-5.0); EOSINOPHILS % (AUTO) 1.1 % (0.0-8.0); HEMATOCRIT 29.1 % (42-54); LYMPHOCYTES % (AUTO) 7.8 % (21.0-51.0); MEAN CORPUSCULAR HEMOGLOBIN 30.5 pg (27.0-33.0); MEAN CORPUSCULAR HGB CONC 32.3 g/dL (32.0-36.0); MEAN CORPUSCULAR VOLUME 94.5 fL (79-99); MONOCYTES % (AUTO) 7.5 % (3.0-13.0); NEUTROPHILS % (AUTO) 81.9 % (40.0-77.0); PLATELET COUNT (AUTO) 118 K/uL (130-400); RED BLOOD CELL COUNT(AUTO) 3.08 MIL/uL (4.50-6.20); RED CELL DISTRIBUTION WIDTH 12.6 % (11.0-15.5)
[2021-10-05 05:31] LABS: CREATININE 2.4 mg/dL (0.5-1.5); POTASSIUM 3.7 mmol/L (3.5-5.1)
[2021-10-05 08:00] VITALS: BP 120/62
[2021-10-05] MEDS: ZINC PO SCH (09:00)
[2021-10-05] MEDS: **HM**(Folic Acid 0.8 MG PO SCH (09:00)
[2021-10-05] MEDS: VIT A PO SCH (09:00)
[2021-10-05] MEDS: VIT E PO SCH (09:00)
[2021-10-05] MEDS: DAPAGLIFLOZIN PROPANEDIOL 5 MG PO SCH (09:00)
[2021-10-05] MEDS: COPPER PO SCH (09:00)
[2021-10-05] MEDS: VIT C PO SCH (09:00)
[2021-10-05] MEDS: CYANOCOBALAMIN (VITAMIN B-12) 1,000 MCG TABLET PO SCH (10:27)
[2021-10-05] MEDS: Vitamin B Complex/Vit C/Folic Acid PO SCH (10:27)
[2021-10-05] MEDS: THIAMINE HCL 100 MG/ML 2ML VIAL IVP SCH (10:27)
[2021-10-05] MEDS: ZOSYN 3.375GM +NS 50ML IV SCH ×2 (10:27→21:46)
[2021-10-05] MEDS: ENOXAPARIN SODIUM 30 MG/0.3 ML SQ SCH (10:27)
[2021-10-05] MEDS: PANTOPRAZOLE 40 MG TAB DR PO SCH (10:27)
[2021-10-05] MEDS: FINASTERIDE 5 MG TABLET PO SCH (10:27)
[2021-10-05] MEDS: GABAPENTIN 300 MG CAPSULE PO SCH ×2 (10:28→19:38)
[2021-10-05] MEDS: FAMOTIDINE 20MG TAB PO SCH (10:28)
[2021-10-05] MEDS: POLYETHYLENE GLYCOL 3350 17 GM POWD.PACK PO SCH (10:28)
[2021-10-05 12:00] VITALS: BP 117/57
[2021-10-05 16:00] VITALS: BP 117/63
[2021-10-05 19:00] VITALS: BP 119/61
[2021-10-05] MEDS: TAMSULOSIN HCL 0.4 MG CAP.ER.24H PO SCH (19:38)
[2021-10-05] MEDS: MIRTAZAPINE 15 MG TABLET PO SCH (19:38)
[2021-10-06] VITALS (20 sets, daily range): BP systolic 102–147; BP diastolic 19–87
[2021-10-06] MEDS: INSULIN HUMULIN R 100 UNIT/ML 3ML SQ SCH ×4 (05:14→18:42)
[2021-10-06 06:00] LABS: BASOPHILS % (AUTO) 0.4 % (0.0-5.0); EOSINOPHILS % (AUTO) 2.1 % (0.0-8.0); HEMATOCRIT 31.5 % (42-54); LYMPHOCYTES % (AUTO) 11.1 % (21.0-51.0); MEAN CORPUSCULAR HEMOGLOBIN 30.1 pg (27.0-33.0); MEAN CORPUSCULAR HGB CONC 31.1 g/dL (32.0-36.0); MEAN CORPUSCULAR VOLUME 96.6 fL (79-99); NEUTROPHILS % (AUTO) 78.1 % (40.0-77.0); PLATELET COUNT (AUTO) 144 K/uL (130-400); RED BLOOD CELL COUNT(AUTO) 3.26 MIL/uL (4.50-6.20); RED CELL DISTRIBUTION WIDTH 12.7 % (11.0-15.5); WHITE BLOOD COUNT (AUTO) 10.9 K/uL (4.8-10.8)
[2021-10-06 06:11] LABS: CREATININE 2.9 mg/dL (0.5-1.5)
[2021-10-06 06:13] LABS: INR 0.95 (0.85-1.15); PROTHROMBIN TIME 10.4 SEC (9.6-11.6)
[2021-10-06 06:15] LABS: PARTIAL THROMBOPLASTIN TIME 25.9 SEC (26.3-35.5)
[2021-10-06] MEDS: DAPAGLIFLOZIN PROPANEDIOL 5 MG PO SCH (09:00)
[2021-10-06] MEDS: VIT A PO SCH (09:00)
[2021-10-06] MEDS: Vitamin B Complex/Vit C/Folic Acid PO SCH (09:00)
[2021-10-06] MEDS: VIT C PO SCH (09:00)
[2021-10-06] MEDS: GABAPENTIN 300 MG CAPSULE PO SCH ×2 (09:00→20:52)
[2021-10-06] MEDS: THIAMINE HCL 100 MG/ML 2ML VIAL IVP SCH (09:00)
[2021-10-06] MEDS: ENOXAPARIN SODIUM 30 MG/0.3 ML SQ SCH (09:00)
[2021-10-06] MEDS: **HM**(Folic Acid 0.8 MG PO SCH (09:00)
[2021-10-06] MEDS: FINASTERIDE 5 MG TABLET PO SCH (09:00)
[2021-10-06] MEDS: POLYETHYLENE GLYCOL 3350 17 GM POWD.PACK PO SCH (09:00)
[2021-10-06] MEDS: FAMOTIDINE 20MG TAB PO SCH (09:00)
[2021-10-06] MEDS: PANTOPRAZOLE 40 MG TAB DR PO SCH (09:00)
[2021-10-06] MEDS: CYANOCOBALAMIN (VITAMIN B-12) 1,000 MCG TABLET PO SCH (09:00)
[2021-10-06] MEDS: COPPER PO SCH (09:00)
[2021-10-06] MEDS: VIT E PO SCH (09:00)
[2021-10-06] MEDS: ZINC PO SCH (09:00)
[2021-10-06] MEDS: ZOSYN 3.375GM +NS 50ML IV SCH ×2 (11:00→23:45)
[2021-10-06] MEDS ORDERED: FENTANYL CITRATE PF 50 MCG/1 ML 2ML VIAL ONE (11:05)
[2021-10-06] MEDS ORDERED: PROPOFOL 10 MG/ML 20ML VIAL IV ONE (11:06)
[2021-10-06] MEDS ORDERED: PHENYLEPHRINE HCL 10 MG/ML 1ML VIAL IV ONE (11:17)
[2021-10-06] MEDS: LEVOFLOXACIN 250 MG/D5W 50ML 50 ML IVPB SCH (12:46)
[2021-10-06] MEDS ORDERED: VANCOMYCIN 750MG VIAL IVPB SCH (18:00)
[2021-10-06] MEDS ORDERED: SODIUM CHLORIDE 7% INHALATION 4 ML VIAL.NEB IH ONE ×2 (18:13→22:44)
[2021-10-06] MEDS: MIRTAZAPINE 15 MG TABLET PO SCH (20:52)
[2021-10-06] MEDS: TAMSULOSIN HCL 0.4 MG CAP.ER.24H PO SCH (20:53)
[2021-10-07] VITALS (7 sets, daily range): BP systolic 93–137; BP diastolic 34–80
[2021-10-07] MEDS: INSULIN HUMULIN R 100 UNIT/ML 3ML SQ SCH ×5 (00:54→23:39)
[2021-10-07 05:03] LABS: HEMATOCRIT 27.9 % (42-54); MEAN CORPUSCULAR HEMOGLOBIN 30.6 pg (27.0-33.0); MEAN CORPUSCULAR HGB CONC 31.5 g/dL (32.0-36.0); MEAN CORPUSCULAR VOLUME 96.9 fL (79-99); RED BLOOD CELL COUNT(AUTO) 2.88 MIL/uL (4.50-6.20); RED CELL DISTRIBUTION WIDTH 12.7 % (11.0-15.5)
[2021-10-07 05:10] LABS: CREATININE 2.9 mg/dL (0.5-1.5)
[2021-10-07] MEDS: DAPAGLIFLOZIN PROPANEDIOL 5 MG PO SCH (09:00)
[2021-10-07] MEDS: **HM**(Folic Acid 0.8 MG PO SCH (09:00)
[2021-10-07] MEDS: VIT A PO SCH (09:00)
[2021-10-07] MEDS: ZINC PO SCH (09:00)
[2021-10-07] MEDS: VIT E PO SCH (09:00)
[2021-10-07] MEDS: VIT C PO SCH (09:00)
[2021-10-07] MEDS: COPPER PO SCH (09:00)
[2021-10-07] MEDS: THIAMINE HCL 100 MG/ML 2ML VIAL IVP SCH (09:45)
[2021-10-07] MEDS: POLYETHYLENE GLYCOL 3350 17 GM POWD.PACK PO SCH (09:46)
[2021-10-07] MEDS: PANTOPRAZOLE 40 MG TAB DR PO SCH (09:46)
[2021-10-07] MEDS: ENOXAPARIN SODIUM 30 MG/0.3 ML SQ SCH (09:46)
[2021-10-07] MEDS: Vitamin B Complex/Vit C/Folic Acid PO SCH (09:46)
[2021-10-07] MEDS: GABAPENTIN 300 MG CAPSULE PO SCH ×2 (09:46→19:52)
[2021-10-07] MEDS: FINASTERIDE 5 MG TABLET PO SCH (09:46)
[2021-10-07] MEDS: CYANOCOBALAMIN (VITAMIN B-12) 1,000 MCG TABLET PO SCH (09:47)
[2021-10-07] MEDS: FAMOTIDINE 20MG TAB PO SCH (09:47)
[2021-10-07] MEDS: ZOSYN 3.375GM +NS 50ML IV SCH ×2 (12:37→23:02)
[2021-10-07] MEDS: DOXYCYCLINE 100MG+NS 250ML IV SCH (13:08)
[2021-10-07] MEDS: FLUCONAZOLE 100 MG TAB PO SCH (13:08)
[2021-10-07] MEDS: TAMSULOSIN HCL 0.4 MG CAP.ER.24H PO SCH (19:52)
[2021-10-07] MEDS: MIRTAZAPINE 15 MG TABLET PO SCH (19:52)
[2021-10-08] MEDS: DOXYCYCLINE 100MG+NS 250ML IV SCH ×2 (00:41→14:27)
[2021-10-08 03:22] VITALS: BP 118/68
[2021-10-08 05:34] LABS: HEMATOCRIT 27.5 % (42-54); MEAN CORPUSCULAR HEMOGLOBIN 30.5 pg (27.0-33.0); MEAN CORPUSCULAR HGB CONC 31.3 g/dL (32.0-36.0); MEAN CORPUSCULAR VOLUME 97.5 fL (79-99); RED BLOOD CELL COUNT(AUTO) 2.82 MIL/uL (4.50-6.20); RED CELL DISTRIBUTION WIDTH 12.6 % (11.0-15.5); WHITE BLOOD COUNT (AUTO) 7.2 K/uL (4.8-10.8)
[2021-10-08 05:35] LABS: CREATININE 2.7 mg/dL (0.5-1.5)
[2021-10-08] MEDS: INSULIN HUMULIN R 100 UNIT/ML 3ML SQ SCH ×3 (05:54→19:34)
[2021-10-08 07:09] VITALS: BP 93/67
[2021-10-08] MEDS: VIT E PO SCH (09:00)
[2021-10-08] MEDS: VIT A PO SCH (09:00)
[2021-10-08] MEDS: COPPER PO SCH (09:00)
[2021-10-08] MEDS: VIT C PO SCH (09:00)
[2021-10-08] MEDS: **HM**(Folic Acid 0.8 MG PO SCH (09:00)
[2021-10-08] MEDS: ZINC PO SCH (09:00)
[2021-10-08] MEDS: DAPAGLIFLOZIN PROPANEDIOL 5 MG PO SCH (09:00)
[2021-10-08] MEDS: Vitamin B Complex/Vit C/Folic Acid PO SCH (10:13)
[2021-10-08] MEDS: GABAPENTIN 300 MG CAPSULE PO SCH ×2 (10:14→20:04)
[2021-10-08] MEDS: CYANOCOBALAMIN (VITAMIN B-12) 1,000 MCG TABLET PO SCH (10:14)
[2021-10-08] MEDS: FINASTERIDE 5 MG TABLET PO SCH (10:14)
[2021-10-08] MEDS: PANTOPRAZOLE 40 MG TAB DR PO SCH (10:14)
[2021-10-08] MEDS: FAMOTIDINE 20MG TAB PO SCH (10:15)
[2021-10-08] MEDS: THIAMINE HCL 100 MG/ML 2ML VIAL IVP SCH (10:16)
[2021-10-08] MEDS: POLYETHYLENE GLYCOL 3350 17 GM POWD.PACK PO SCH (10:16)
[2021-10-08] MEDS: ZOSYN 3.375GM +NS 50ML IV SCH ×2 (10:17→22:22)
[2021-10-08] MEDS: ENOXAPARIN SODIUM 30 MG/0.3 ML SQ SCH (10:17)
[2021-10-08 12:00] VITALS: BP 147/71
[2021-10-08] MEDS: FLUCONAZOLE 100 MG TAB PO SCH (12:37)
[2021-10-08 16:07] VITALS: BP 125/63
[2021-10-08] MEDS: MIRTAZAPINE 15 MG TABLET PO SCH (20:04)
[2021-10-08] MEDS: TAMSULOSIN HCL 0.4 MG CAP.ER.24H PO SCH (20:05)
[2021-10-08] MEDS: BALSAM PERU/CASTOR OIL 60 GM TUBE TP SCH (20:05)
[2021-10-08 20:08] VITALS: BP 127/54
[2021-10-08 23:37] VITALS: BP 113/52
[2021-10-09] VITALS (25 sets, daily range): BP systolic 91–150; BP diastolic 49–73
[2021-10-09] MEDS: DOXYCYCLINE 100MG+NS 250ML IV SCH ×2 (00:07→12:30)
[2021-10-09] MEDS: INSULIN HUMULIN R 100 UNIT/ML 3ML SQ SCH ×4 (00:13→17:51)
[2021-10-09 05:08] LABS: HEMATOCRIT 25.6 % (42-54); MEAN CORPUSCULAR HEMOGLOBIN 30.3 pg (27.0-33.0); MEAN CORPUSCULAR HGB CONC 31.6 g/dL (32.0-36.0); MEAN CORPUSCULAR VOLUME 95.9 fL (79-99); RED BLOOD CELL COUNT(AUTO) 2.67 MIL/uL (4.50-6.20); RED CELL DISTRIBUTION WIDTH 12.9 % (11.0-15.5); WHITE BLOOD COUNT (AUTO) 6.6 K/uL (4.8-10.8)
[2021-10-09 05:33] LABS: CREATININE 2.7 mg/dL (0.5-1.5); POTASSIUM 3.8 mmol/L (3.5-5.1)
[2021-10-09 05:39] LABS: PROTHROMBIN TIME 10.9 SEC (9.6-11.6)
[2021-10-09 05:40] LABS: PARTIAL THROMBOPLASTIN TIME 26.7 SEC (26.3-35.5)
[2021-10-09] MEDS: ZINC PO SCH (09:00)
[2021-10-09] MEDS: FAMOTIDINE 20MG TAB PO SCH (09:00)
[2021-10-09] MEDS: **HM**(Folic Acid 0.8 MG PO SCH (09:00)
[2021-10-09] MEDS: Vitamin B Complex/Vit C/Folic Acid PO SCH (09:00)
[2021-10-09] MEDS: VIT A PO SCH (09:00)
[2021-10-09] MEDS: ENOXAPARIN SODIUM 30 MG/0.3 ML SQ SCH (09:00)
[2021-10-09] MEDS: FINASTERIDE 5 MG TABLET PO SCH (09:00)
[2021-10-09] MEDS: CYANOCOBALAMIN (VITAMIN B-12) 1,000 MCG TABLET PO SCH (09:00)
[2021-10-09] MEDS: GABAPENTIN 300 MG CAPSULE PO SCH ×2 (09:00→21:26)
[2021-10-09] MEDS: POLYETHYLENE GLYCOL 3350 17 GM POWD.PACK PO SCH (09:00)
[2021-10-09] MEDS: VIT C PO SCH (09:00)
[2021-10-09] MEDS: COPPER PO SCH (09:00)
[2021-10-09] MEDS: VIT E PO SCH (09:00)
[2021-10-09] MEDS: PANTOPRAZOLE 40 MG TAB DR PO SCH (09:00)
[2021-10-09] MEDS: DAPAGLIFLOZIN PROPANEDIOL 5 MG PO SCH (09:00)
[2021-10-09] MEDS: THIAMINE HCL 100 MG/ML 2ML VIAL IVP SCH (09:24)
[2021-10-09] MEDS: BALSAM PERU/CASTOR OIL 60 GM TUBE TP SCH ×3 (09:26→21:26)
[2021-10-09] MEDS ORDERED: DEXAMETHASONE SOD PHOSPHATE 10MG/ML 1ML VIAL ONE (10:29)
[2021-10-09] MEDS ORDERED: MIDAZOLAM HCL 1 MG/ML 2ML VIAL ONE (10:29)
[2021-10-09] MEDS ORDERED: LIDOCAINE PF 100MG/5ML (2%) SYRINGE 5ML ONE (10:29)
[2021-10-09] MEDS ORDERED: SUCCINYLCHOLINE CHLORIDE 20 MG/ML 10 ML VIAL ONE (10:29)
[2021-10-09] MEDS ORDERED: ROCURONIUM 10MG/1ML SYR 10 MG/ML ML ONE (10:30)
[2021-10-09] MEDS ORDERED: GLYCOPYRROLATE 1 MG/5 ML SYRINGE ONE (10:30)
[2021-10-09] MEDS ORDERED: NEOSTIGMINE 5MG/5ML SYR IV ONE (10:30)
[2021-10-09] MEDS ORDERED: ONDANSETRON 4MG INJ ONE (10:30)
[2021-10-09] MEDS ORDERED: PROPOFOL 10 MG/ML 20ML VIAL IV ONE (10:30)
[2021-10-09] MEDS ORDERED: FENTANYL CITRATE PF 50 MCG/1 ML 2ML VIAL ONE (10:31)
[2021-10-09] MEDS: ZOSYN 3.375GM +NS 50ML IV SCH (10:42)
[2021-10-09] MEDS ORDERED: LACTATED RINGERS 1000ML 1,000 ML IV ONE (10:50)
[2021-10-09] MEDS ORDERED: KETAMINE 50MG/ML SYRINGE 50 MG/ML DISP.SYRIN IV ONE (10:54)
[2021-10-09] MEDS ORDERED: EPHEDRINE SULFATE 50 MG/ML AMPULE ONE (10:57)
[2021-10-09] MEDS: FLUCONAZOLE 100 MG TAB PO SCH (12:30)
[2021-10-09] MEDS: LACTATED RINGERS 1000ML 1,000 ML IV SCH (18:30)
[2021-10-09] MEDS: MIRTAZAPINE 15 MG TABLET PO SCH (21:25)
[2021-10-09] MEDS: TAMSULOSIN HCL 0.4 MG CAP.ER.24H PO SCH (21:26)
[2021-10-10 03:54] VITALS: BP 116/65
[2021-10-10 04:55] LABS: HEMATOCRIT 22.7 % (42-54); MEAN CORPUSCULAR HEMOGLOBIN 30.9 pg (27.0-33.0); MEAN CORPUSCULAR HGB CONC 32.2 g/dL (32.0-36.0); MEAN CORPUSCULAR VOLUME 96.2 fL (79-99); RED BLOOD CELL COUNT(AUTO) 2.36 MIL/uL (4.50-6.20); RED CELL DISTRIBUTION WIDTH 12.9 % (11.0-15.5); WHITE BLOOD COUNT (AUTO) 6.1 K/uL (4.8-10.8)
[2021-10-10] MEDS: INSULIN HUMULIN R 100 UNIT/ML 3ML SQ SCH ×4 (05:22→18:00)
[2021-10-10] MEDS: LACTATED RINGERS 1000ML 1,000 ML IV SCH ×2 (05:23→20:00)
[2021-10-10 05:29] LABS: CREATININE 2.4 mg/dL (0.5-1.5); MAGNESIUM 1.9 mg/dL (1.80-2.40); POTASSIUM 3.8 mmol/L (3.5-5.1)
[2021-10-10 07:45] VITALS: BP 115/52
[2021-10-10] MEDS: VIT C PO SCH (09:00)
[2021-10-10] MEDS: ZINC PO SCH (09:00)
[2021-10-10] MEDS: **HM**(Folic Acid 0.8 MG PO SCH (09:00)
[2021-10-10] MEDS: VIT A PO SCH (09:00)
[2021-10-10] MEDS: VIT E PO SCH (09:00)
[2021-10-10] MEDS: COPPER PO SCH (09:00)
[2021-10-10] MEDS: DAPAGLIFLOZIN PROPANEDIOL 5 MG PO SCH (09:00)
[2021-10-10] MEDS: FINASTERIDE 5 MG TABLET PO SCH (10:23)
[2021-10-10] MEDS: Vitamin B Complex/Vit C/Folic Acid PO SCH (10:23)
[2021-10-10] MEDS: PANTOPRAZOLE 40 MG TAB DR PO SCH (10:24)
[2021-10-10] MEDS: BALSAM PERU/CASTOR OIL 60 GM TUBE TP SCH ×3 (10:24→20:02)
[2021-10-10] MEDS: THIAMINE HCL 100 MG/ML 2ML VIAL IVP SCH (10:24)
[2021-10-10] MEDS: GABAPENTIN 300 MG CAPSULE PO SCH ×2 (10:24→20:01)
[2021-10-10] MEDS: CYANOCOBALAMIN (VITAMIN B-12) 1,000 MCG TABLET PO SCH (10:24)
[2021-10-10] MEDS: ENOXAPARIN SODIUM 30 MG/0.3 ML SQ SCH (10:25)
[2021-10-10] MEDS: POLYETHYLENE GLYCOL 3350 17 GM POWD.PACK PO SCH (10:25)
[2021-10-10] MEDS: FAMOTIDINE 20MG TAB PO SCH (10:25)
[2021-10-10 13:44] VITALS: BP 122/80
[2021-10-10 16:00] VITALS: BP 114/59
[2021-10-10 20:00] VITALS: BP 119/67
[2021-10-10] MEDS: DOXYCYCLINE 100MG+NS 250ML IV SCH (20:00)
[2021-10-10] MEDS: TAMSULOSIN HCL 0.4 MG CAP.ER.24H PO SCH (20:01)
[2021-10-10] MEDS: MIRTAZAPINE 15 MG TABLET PO SCH (20:01)
[2021-10-10] MEDS ORDERED: FLUCONAZOLE 100 MG TAB PO SCH (21:00)
[2021-10-11] VITALS: BP 125/52
[2021-10-11] MEDS: INSULIN HUMULIN R 100 UNIT/ML 3ML SQ SCH ×3 (00:01→13:35)
[2021-10-11 04:00] VITALS: BP 119/52
[2021-10-11 04:56] LABS: BASOPHILS % (AUTO) 0.2 % (0.0-5.0); EOSINOPHILS % (AUTO) 1.9 % (0.0-8.0); HEMATOCRIT 23.4 % (42-54); LYMPHOCYTES % (AUTO) 9.6 % (21.0-51.0); MEAN CORPUSCULAR HEMOGLOBIN 30.5 pg (27.0-33.0); MEAN CORPUSCULAR HGB CONC 32.1 g/dL (32.0-36.0); MEAN CORPUSCULAR VOLUME 95.1 fL (79-99); MONOCYTES % (AUTO) 5.8 % (3.0-13.0); NEUTROPHILS % (AUTO) 81.1 % (40.0-77.0); PLATELET COUNT (AUTO) 107 K/uL (130-400); RED BLOOD CELL COUNT(AUTO) 2.46 MIL/uL (4.50-6.20); RED CELL DISTRIBUTION WIDTH 12.7 % (11.0-15.5); WHITE BLOOD COUNT (AUTO) 5.1 K/uL (4.8-10.8)
[2021-10-11 05:06] LABS: CREATININE 2.1 mg/dL (0.5-1.5); POTASSIUM 3.3 mmol/L (3.5-5.1)
[2021-10-11] MEDS ORDERED: POTASSIUM CHLORIDE 10MEQ/100ML 10 MEQ/100 ML ML IV SCH (06:00)
[2021-10-11 07:30] VITALS: BP 143/49
[2021-10-11] MEDS: VIT A PO SCH (09:00)
[2021-10-11] MEDS: DAPAGLIFLOZIN PROPANEDIOL 5 MG PO SCH (09:00)
[2021-10-11] MEDS: COPPER PO SCH (09:00)
[2021-10-11] MEDS: ZINC PO SCH (09:00)
[2021-10-11] MEDS: **HM**(Folic Acid 0.8 MG PO SCH (09:00)
[2021-10-11] MEDS: VIT C PO SCH (09:00)
[2021-10-11] MEDS: VIT E PO SCH (09:00)
[2021-10-11] MEDS: DOXYCYCLINE 100MG+NS 250ML IV SCH (10:02)
[2021-10-11] MEDS: GABAPENTIN 300 MG CAPSULE PO SCH (10:03)
[2021-10-11] MEDS: Vitamin B Complex/Vit C/Folic Acid PO SCH (10:10)
[2021-10-11] MEDS: THIAMINE HCL 100 MG/ML 2ML VIAL IVP SCH (10:10)
[2021-10-11] MEDS: POLYETHYLENE GLYCOL 3350 17 GM POWD.PACK PO SCH (10:10)
[2021-10-11] MEDS: FAMOTIDINE 20MG TAB PO SCH (10:10)
[2021-10-11] MEDS: FINASTERIDE 5 MG TABLET PO SCH (10:10)
[2021-10-11] MEDS: CYANOCOBALAMIN (VITAMIN B-12) 1,000 MCG TABLET PO SCH (10:10)
[2021-10-11] MEDS: PANTOPRAZOLE 40 MG TAB DR PO SCH (10:10)
[2021-10-11] MEDS: ENOXAPARIN SODIUM 30 MG/0.3 ML SQ SCH (10:14)
[2021-10-11] MEDS: BALSAM PERU/CASTOR OIL 60 GM TUBE TP SCH ×2 (10:15→14:00)
[2021-10-11 11:00] VITALS: BP 123/40
[2021-10-11 16:00] VITALS: BP 121/46
== END 2021-10-11 18:00 | DRG 871 ==
LOC: EDH 18:55 → EDHIP 20:51 → 4DH 23:53 → 3DH 09-29 04:17
PROVIDERS: ADMIT Internal Medicine Critical Care Medicine; ATTEND Internal Medicine Critical Care Medicine
PROC: 0DH60UZ Insertion of Feeding Device into Stomach, Open Approach (ICD-10-PCS; principal; 2021-10-09 11:44)
DX: A41.9 Sepsis, unspecified organism (principal); G93.41 Metabolic encephalopathy; N17.9 Acute kidney failure, unspecified; N39.0 Urinary tract infection, site not specified; B96.20 Unspecified Escherichia coli [E. coli] as the cause of diseases classified elsewhere; E86.9 Volume depletion, unspecified; Z20.822 Contact with and (suspected) exposure to COVID-19; D64.9 Anemia, unspecified; E11.22 Type 2 diabetes mellitus with diabetic chronic kidney disease; I12.9 Hypertensive chronic kidney disease with stage 1 through stage 4 chronic kidney disease, or unspecified chronic kidney disease; E78.00 Pure hypercholesterolemia, unspecified; F03.90 Unspecified dementia, unspecified severity, without behavioral disturbance, psychotic disturbance, mood disturbance, and anxiety; I25.10 Atherosclerotic heart disease of native coronary artery without angina pectoris; N18.9 Chronic kidney disease, unspecified; N40.0 Benign prostatic hyperplasia without lower urinary tract symptoms; N41.9 Inflammatory disease of prostate, unspecified; R13.12 Dysphagia, oropharyngeal phase; R32 Unspecified urinary incontinence; R62.7 Adult failure to thrive; Z74.01 Bed confinement status; I25.2 Old myocardial infarction; Z93.1 Gastrostomy status; Z83.3 Family history of diabetes mellitus; R65.20 Severe sepsis without septic shock; L89.152 Pressure ulcer of sacral region, stage 2
CPT/HCPCS: 36415; 43235; 70450; 70551; 71045; 74176; 74230; 76770; 80048; 80053; 80202; 81001; 82140; 82948; 83540; 83550; 83605; 83735; 84100; 84443; 84484; 84550; 85025; 85027; 85610; 85730; 86606; 86612; 87040; 87071; 87077; 87088; 87186; 87205; 87635; 87804; 92610; 92611; 93005; 93306; 93356; 93970; 94640; 97039; C9803; G0378; J0330; J0696; J1100; J1650; J1815; J1956; J2001; J2185; J2250; J2370; J2405; J2543; J2704; J2710; J3010; J3370; J3411; J3490; J7030; J7070; J7120

== ENCOUNTER 2021-10-22 15:34 | Emergency (ER) | payer MEDICARE ==
[~2021-10-22] VITALS: Ht 167.6 cm; Wt 70.3 kg
[~2021-10-22 15:34] MED LIST changes: -BETA1TAB20 PO; -CA C1TAB74 PO; +CYAN5POW PO; +FAMO-136 PO; +FINA5TAB2 PO; +GUAI5LIQ13 PO; +LACT10SO9 PO; -LEVO-70 PO; +MAG-37 PO; -MECO10005 PO; +MIRT-92 PO; +ONDA22I PO
[2021-10-22 15:58] LABS: BASOPHILS % (AUTO) 0.1 % (0.0-5.0); EOSINOPHILS % (AUTO) 0.4 % (0.0-8.0); HEMATOCRIT 24.9 % (42-54); LYMPHOCYTES % (AUTO) 10.8 % (21.0-51.0); MEAN CORPUSCULAR HEMOGLOBIN 31.8 pg (27.0-33.0); MEAN CORPUSCULAR HGB CONC 32.5 g/dL (32.0-36.0); MEAN CORPUSCULAR VOLUME 97.6 fL (79-99); MONOCYTES % (AUTO) 6.1 % (3.0-13.0); NEUTROPHILS % (AUTO) 80.8 % (40.0-77.0); PLATELET COUNT (AUTO) 164 K/uL (130-400); RED BLOOD CELL COUNT(AUTO) 2.55 MIL/uL (4.50-6.20); RED CELL DISTRIBUTION WIDTH 15.3 % (11.0-15.5); WHITE BLOOD COUNT (AUTO) 7.4 K/uL (4.8-10.8)
[2021-10-22] MEDS ORDERED: 0.9%NACL 1000ML 1,000 ML IV ONE (16:06)
[2021-10-22 16:08] LABS: CREATININE 2.7 mg/dL (0.5-1.5); POTASSIUM 4.6 mmol/L (3.5-5.1)
[2021-10-22 16:13] LABS: ALBUMIN 2.2 g/dL (3.5-5.0); TOTAL PROTEIN, SERUM 5.9 g/dL (6.0-8.3)
[2021-10-22 16:14] LABS: APPEARANCE,URINE CLEAR (CLEAR); BILIRUBIN,URINE NEGATIVE (NEGATIVE); COLOR,URINE YELLOW (YELLOW); GLUCOSE, URINE (UA) >=1000 mg/dL (NEGATIVE); KETONES,URINE NEGATIVE (NEGATIVE); LEUKOCYTE ESTERASE ,URINE NEGATIVE (NEGATIVE); NITRATE,URINE NEGATIVE (NEGATIVE); OCCULT BLOOD,URINE NEGATIVE (NEGATIVE); PROTEIN,URINE TRACE mg/dL (NEGATIVE); UROBILINOGEN,URINE 0.2 mg/dL (0.2-1.0)
[2021-10-22] MEDS ORDERED: 0.9%NACL 1000ML 1,000 ML IV SCH (16:30)
[2021-10-22 17:07] LABS: RBC,URINE 0-1 /HPF (0-1); WBC,URINE 0-1 /HPF (0-1)
[2021-10-22 17:08] LABS: BACTERIA,URINE Rare /HPF (None Seen); SQUAMOUS EPITHELIAL CELL,UR Rare /HPF (0-2)
[2021-10-22] MEDS ORDERED: 0.9% NACL 500ML IV.SOLN 500 ML IV ONE (19:00)
[2021-10-22 21:34] VITALS: BP 122/55
[2021-10-29] MEDS ORDERED: CLON0.1T PO (21:19)
[2021-10-29] MEDS ORDERED: PANT40TA54 PO (21:19)
[2021-10-29] MEDS ORDERED: FERR-82 PO (21:19)
[2021-10-29] MEDS ORDERED: BETA1TAB20 PO (21:19)
[2021-10-29] MEDS ORDERED: [UNRECOGNIZED DRUG - CODE] IJ (21:19)
[2021-10-29] MEDS ORDERED: ZINC220C6 PO (21:19)
[2021-10-29] MEDS ORDERED: FOLI1TAB85 PO (21:19)
[2021-10-29] MEDS ORDERED: ASCO500T19 PO (21:19)
== END 2021-10-22 22:51 | disposition home or self-care (01) ==
LOC: EDH 15:34
DX: I95.1 Orthostatic hypotension (principal); E86.9 Volume depletion, unspecified; Z20.822 Contact with and (suspected) exposure to COVID-19; I10 Essential (primary) hypertension; E78.00 Pure hypercholesterolemia, unspecified; E11.9 Type 2 diabetes mellitus without complications; F03.90 Unspecified dementia, unspecified severity, without behavioral disturbance, psychotic disturbance, mood disturbance, and anxiety
CPT/HCPCS: 99285; 96360; 70450; 71045; 96361; 87635; 82550; 84484; 80053; 85025; 81001; 36415; 73522; 93005; C9803; J7030

== ENCOUNTER 2021-10-26 13:00 | Emergency (ER) | payer MEDICARE ==
[~2021-10-26] VITALS: Ht 167.6 cm; Wt 68.0 kg
[2021-10-26 13:54] LABS: BASOPHILS % (AUTO) 0.1 % (0.0-5.0); EOSINOPHILS % (AUTO) 0.5 % (0.0-8.0); HEMATOCRIT 22.9 % (42-54); LYMPHOCYTES % (AUTO) 6.5 % (21.0-51.0); MEAN CORPUSCULAR HEMOGLOBIN 31.4 pg (27.0-33.0); MEAN CORPUSCULAR HGB CONC 32.3 g/dL (32.0-36.0); MONOCYTES % (AUTO) 5.3 % (3.0-13.0); NEUTROPHILS % (AUTO) 86.5 % (40.0-77.0); PLATELET COUNT (AUTO) 156 K/uL (130-400); RED BLOOD CELL COUNT(AUTO) 2.36 MIL/uL (4.50-6.20); RED CELL DISTRIBUTION WIDTH 15.2 % (11.0-15.5); WHITE BLOOD COUNT (AUTO) 8.8 K/uL (4.8-10.8)
[2021-10-26 14:00] VITALS: BP 117/61
[2021-10-26 14:09] LABS: CREATININE 2.3 mg/dL (0.5-1.5); POTASSIUM 4.3 mmol/L (3.5-5.1)
[2021-10-26 14:16] LABS: ALBUMIN 2.1 g/dL (3.5-5.0); TOTAL PROTEIN, SERUM 5.6 g/dL (6.0-8.3)
[2021-10-29] MEDS ORDERED: FOLI1TAB85 PO (21:19)
[2021-10-29] MEDS ORDERED: FERR-82 PO (21:19)
[2021-10-29] MEDS ORDERED: CLON0.1T PO (21:19)
[2021-10-29] MEDS ORDERED: ZINC220C6 PO (21:19)
[2021-10-29] MEDS ORDERED: PANT40TA54 PO (21:19)
[2021-10-29] MEDS ORDERED: ASCO500T19 PO (21:19)
[2021-10-29] MEDS ORDERED: BETA1TAB20 PO (21:19)
[2021-10-29] MEDS ORDERED: [UNRECOGNIZED DRUG - CODE] IJ (21:19)
== END 2021-10-26 16:27 | disposition home or self-care (01) ==
LOC: EDH 13:00
DX: E11.22 Type 2 diabetes mellitus with diabetic chronic kidney disease (principal); N18.9 Chronic kidney disease, unspecified; D63.1 Anemia in chronic kidney disease; F03.90 Unspecified dementia, unspecified severity, without behavioral disturbance, psychotic disturbance, mood disturbance, and anxiety; Z79.84 Long term (current) use of oral hypoglycemic drugs; Z79.899 Other long term (current) drug therapy
CPT/HCPCS: 36415; 80053; 82270; 85025; 86850; 86900; 86901

== ENCOUNTER 2021-12-11 13:02 | Emergency (ER) | payer MEDICARE ==
[~2021-12-11] VITALS: Ht 177.8 cm; Wt 63.5 kg
[2021-12-11] MEDS ORDERED: DIATR MEGLU/DIATRIZOATE SODIUM 30 ML BOTTLE ONE (14:05)
[2021-12-11 14:17] VITALS: BP 98/65
== END 2021-12-11 16:04 | disposition home or self-care (01) ==
LOC: EDH 13:02
DX: K94.23 Gastrostomy malfunction (principal); E11.9 Type 2 diabetes mellitus without complications; I10 Essential (primary) hypertension; F03.90 Unspecified dementia, unspecified severity, without behavioral disturbance, psychotic disturbance, mood disturbance, and anxiety; Z87.440 Personal history of urinary (tract) infections
CPT/HCPCS: 99284; 43762; 74018; Q9963